=== PATIENT | male | born 1960 | race Caucasian/White ===

== ENCOUNTER → 2016-08-29 | Outpatient (CLI) | payer OTHER | LOC: BMCIMAGING 16:28 | PROVIDERS: ATTEND Internal Medicine | DX: R07.9 Chest pain, unspecified (principal) ==

== ENCOUNTER 2017-09-01 16:59 | Emergency (ER) | payer OTHER ==
--- NOTE | 2017-09-01 17:03 | EDPHY ---
HPI/HX/ROS/PE/MDM Narrative: CHIEF COMPLAINT: Rapid pulse, chest pain HPI: The patient is a 57 y/o male with a history of GERD complaining of sudden onset rapid pulse and chest pain onset 14:00, 3 hours ago, while doing non-exertional woodwork at home. He has had similar chest pain in the past, without a firm diagnosis. Around 4 weeks ago he saw Dr. Guerrier, wool dyer, and had a normal echocardiogram. He had planned to do a stress test but insurance denied the plan. The chest pain today was initially dull and radiating throughout his chest and up into his neck. Currently he is not having pain and is no longer having a pounding pulse. Taking a deep breath does not affect his symptoms. Denies familial history of cardiac problems. Denies history of diabetes, hypertension, and hypercholesteremia. Denies headache, shortness of breath, abdominal pain, urinary or bowel complaints, numbness, paresthesias, or fever. REVIEW OF SYSTEMS: Aside from elements discussed in the HPI, a comprehensive 10-point review of systems was reviewed and is negative. 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 ENT: Eyes are normal to inspection. ENT inspection normal. Neck: Normal inspection. Full range of motion. Respiratory: No respiratory distress. Breath sounds normal bilaterally. Cardiovascular: Regular rate and rhythm. Strong peripheral pulses. Normal cap refill. Abdomen: The abdomen is nontender to palpation. There are no peritoneal signs. There are normal bowel sounds. Back: Normal to inspection. No tenderness to palpation. Skin: Normal color. No rash. Warm and dry. Extremities: Normal appearance. Full range of motion. Neuro: Oriented x3. Normal motor function. Normal sensory function. ED Course: 1706: EKG was ordered and interpreted by myself. Please see [employer] ([employer]) system for official reading. 1808: Reassessed patient and discussed normal laboratory and imaging findings. I have advised him to follow up with his wool dyer in the next week. Strict return precautions provided; patient is comfortable with this plan. MDM: This patient presents with atypical chest pain in the absence of cardiac risk factors. We performed an extensive workup including D-dimer, EKG, troponin, chest x-ray, all of which are negative. I see no evidence for pulmonary embolus , acute coronary syndrome, thoracic aortic dissection, pneumothorax, pneumonia. On re-evaluation, the patient feels comfortable his vital signs are normal. We discussed options including admission to the hospital, repeat troponin, but patient would prefer to go home. The patient's heart score is very low and per guidelines, the recommended plan is discharge from the ED. We will refer him back to his wool dyer. We discussed strict return precautions. - Data Points Imaging Results: Imaging Impressions Chest X-Ray 09/01/17 17:41 Impression: No significant radiographic abnormality. Specifically, a source for chest pain is not identified. Imaging: I viewed and interpreted images myself Laboratory Results: Laboratory Results 09/01/17 17:05 09/01/17 17:05 09/01/17 09/01/17 09/01/17 17:05 17:05 17:05 WBC 5.56 10^3/uL 10^3/uL (3.80-9.50) RBC 4.91 10^6/uL 10^6/uL (4.40-6.38) Hgb 14.7 g/dL g/dL (13.7-17.5) Hct 43.2 % % (40.0-51.0) MCV 88.0 fL fL (81.5-99.8) MCH 29.9 pg pg (27.9-34.1) MCHC 34.0 g/dL g/dL (32.4-36.7) RDW 12.2 % % (11.5-15.2) Plt Count 238 10^3/uL 10^3/uL (150-400) MPV 9.6 fL fL (8.7-11.7) Neut % (Auto) 70.4 % % (39.3-74.2) Lymph % (Auto) 20.5 % % (15.0-45.0) [place] % (Auto) 7.0 % % (4.5-13.0) Eos % (Auto) 0.7 % % (0.6-7.6) Baso % (Auto) 0.7 % % (0.3-1.7) Nucleat RBC Rel Count 0.0 % % (0.0-0.2) Absolute Neuts (auto) 3.91 10^3/uL 10^3/uL (1.70-6.50) Absolute Lymphs (auto) 1.14 10^3/uL 10^3/uL (1.00-3.00) Absolute Monos (auto) 0.39 10^3/uL 10^3/uL (0.30-0.80) Absolute Eos (auto) 0.04 10^3/uL 10^3/uL (0.03-0.40) Absolute Basos (auto) 0.04 10^3/uL 10^3/uL (0.02-0.10) Absolute Nucleated RBC 0.00 10^3/uL 10^3/uL (0-0.01) Immature Gran % 0.7 % % (0.0-1.1) Immature Gran # 0.04 10^3/uL 10^3/uL (0.00-0.10) D-Dimer 0.41 ug/mLFEU ug/mLFEU (0.00-0.50) Sodium 147 mEq/L H mEq/L (135-145) Potassium 3.8 mEq/L mEq/L (3.5-5.2) Chloride 107 mEq/L mEq/L (97-110) Carbon Dioxide 24 mEq/l mEq/l (22-31) Anion Gap 16 mEq/L mEq/L (8-16) BUN 13 mg/dL mg/dL (7-23) Creatinine 0.9 mg/dL mg/dL (0.7-1.3) Estimated GFR > 60 Glucose 105 mg/dL H mg/dL (70-100) Calcium 9.6 mg/dL mg/dL (8.5-10.4) Troponin I < 0.012 ng/mL ng/mL (0.000-0.034) General Time Seen by Provider: 09/01/17 17:01 Initial Vital Signs: Initial Vital Signs Temperature (C) 37.1 C 09/01/17 17:04 Heart Rate 95 09/01/17 17:04 Respiratory Rate 18 09/01/17 17:04 Blood Pressure 164/98 H 09/01/17 17:04 O2 Sat (%) 97 09/01/17 17:04 O2 Delivery Mode Room Air Allergies/Adverse Reactions: aspirin Allergy (Verified 09/01/17 17:04) Home Medications: Medication Instructions Recorded NK [No Known Home Meds] 09/01/17 Departure - Departure Disposition: Home, Routine, Self-Care Clinical Impression: Chest pain Qualifiers: Chest pain type: other chest pain Qualified Code(s): R07.89 - Other chest pain Condition: Good Instructions: Chest Pain (ED) Additional Instructions: Follow-up with your primary doctor within 72 hours. Return to the Emergency Department for fever, chest pain, shortness of breath, increasing pain or other worsening of condition. Follow up with a wool dyer for further testing, as soon as possible, within one week. As we discussed, it is impossible to fully rule out heart disease as the cause of your chest pain in the emergency department. We would be happy to reevaluate you and observe you in the hospital at any time. Referrals: Annette Lyon MD [Primary Care Provider] - As per Instructions Jose D Guerrier MD [Medical Doctor] - As per Instructions Report Scribed for: Galdino Valdez Report Scribed by: Gricelda Cain Date of Report: 09/01/17 Time of Report: 17:02 Physician Review and Approval Statement: Portions of this note were transcribed by an ED scribe. I personally performed the history, physical exam, and medical decision making; and confirm the accuracy of the information in the transcribed note.
--- NOTE | 2017-09-01 17:10 | CPEKG ---
Heart Rate: 92 RR Interval: 652 P-R Interval: 152 QRSD Interval: 84 QT Interval: 352 QTC Interval: 436 P [place]: 23 QRS [place]: 53 T Wave [place]: 2 EKG Severity - OTHERWISE NORMAL ECG - EKG Impression: SINUS RHYTHM EKG Impression: LOW VOLTAGE IN FRONTAL LEADS Electronically Signed By: Helio William 03-Sep-2017 14:51:54
[2017-09-01 17:22] LABS: PLATELET COUNT 238 10^3/uL (150-400)
[2017-09-01 18:10] VITALS: BP 140/91
== END 2017-09-01 18:25 | disposition home or self-care (01) ==
DX: R07.89 Other chest pain (principal)

== ENCOUNTER 2017-10-03 07:48 | Day surgery (SDC) | payer OTHER ==
--- NOTE | 2017-10-03 07:53 | EDPHY ---
H & P Time Seen by Provider: 10/03/17 07:52 HPI/ROS: CHIEF COMPLAINT: Chest pain and rapid pulse HISTORY OF PRESENT ILLNESS: Patient was seen in our ED on September 01 with chest pain and was discharged; head unremarkable EKG, D-dimer, and troponin. he had a follow-up with Cardiology and had a nuclear stress test 2 weeks ago and a cardiac catheterization plan for a week from today. He has been feeling poorly for several weeks and had a colonoscopy and EGD late last week as part of his investigation into his symptoms. He awakened this morning at 5:00 a.m. Feeling"queasy"and at 7:15 a.m. While he was on the sofa watching the morning news, he developed stabbing left-sided chest pain radiating to his left arm associated with chills and a rapid heart rate. His chest pain is resolved and now has chest just feels"numb"but the rapid pulse continues. Not associated with cough or fever or leg swelling. No recent travel or immobilization. No syncope. REVIEW OF SYSTEMS: Eye: no change in vision ENT: no sore throat Cardiac: HPI Pulmonary: no cough or SOB Abdomen: no vomiting, diarrhea, abdominal pain Musculoskeletal: no back pain or neck pain Skin: no rash Neuro: no headache Constitutional: Feeling chilled : no urinary symptoms A comprehensive 10 point review of systems is otherwise negative aside from elements mentioned in the history of present illness. PAST MEDICAL HISTORY: Previous ED visit dated 09/01/2017 personally reviewed includes GERD and nasal surgery. Family history: Denies family history of CAD or VTE Social history: Nonsmoker General Appearance: Alert and conversant, cooperative. Eyes: No scleral icterus. ENT, Mouth: Normal mucous membranes. Respiratory: Normal respiratory effort, breath sounds equal, lungs are clear to auscultation. Cardiovascular: Regular rate and rhythm. Tachycardic without murmur. Gastrointestinal: Abdomen is soft and non tender. Neurological: Alert, face symmetric, normal motor and sensory in extremities. Skin: Warm and dry, no rashes. Musculoskeletal: No peripheral edema. No calf tenderness. Psychiatric: Appears shaky, a bit anxious. Emergency Department course/MDM: Patient states he is allergic to aspirin with throat tightness and hives, therefore none is given. Labs sent and placed on a monitor, cardiology consultation for recurrent symptoms with abnormal EKG and previously documented abnormal stress test. Does not appear to have ST elevation in the ED. Chest symptoms have mostly resolved and he just feels"numb". 841: Discussed with Colt who is here in the emergency department to see the patient. Admission hospitalist, plan for catheterization lab this morning. Smoking Status: Never smoked Constitutional: Initial Vital Signs Temperature (C) 36.6 C 10/03/17 07:50 Heart Rate 122 H 10/03/17 07:50 Respiratory Rate 20 10/03/17 07:50 Blood Pressure 135/93 H 10/03/17 07:50 O2 Sat (%) 98 10/03/17 07:50 O2 Delivery Mode Room Air Allergies/Adverse Reactions: aspirin Allergy (Verified 10/03/17 07:49) Home Medications: Medication Instructions Recorded NK [No Known Home Meds] 09/01/17 Medical Decision Making - Diagnostics EKG Interpretation: 12-lead EKG interpreted by me; official reading is in trace master. My interpretation is sinus tachycardia with low voltage in frontal leads, query diffuse anterolateral ST depression. Imaging Results: 828: Chest x-ray personally interpreted is normal. Differential Diagnosis: Differential diagnosis considered for chest pain including but not limited to myocardial ischemia, aortic dissection, pericarditis, pulmonary embolus, chest wall pain, pleural inflammation and pulmonary infectious causes. Consult/Admit Bed Type: Colt 807 will see in ED, [facility] 840 - Data Points Laboratory Results: Laboratory Results 10/03/17 07:55 10/03/17 07:55 10/03/17 10/03/17 07:55 07:55 WBC 8.55 10^3/uL 10^3/uL (3.80-9.50) RBC 5.13 10^6/uL 10^6/uL (4.40-6.38) Hgb 15.5 g/dL g/dL (13.7-17.5) Hct 45.6 % % (40.0-51.0) MCV 88.9 fL fL (81.5-99.8) MCH 30.2 pg pg (27.9-34.1) MCHC 34.0 g/dL g/dL (32.4-36.7) RDW 12.0 % % (11.5-15.2) Plt Count 246 10^3/uL 10^3/uL (150-400) MPV 9.8 fL fL (8.7-11.7) Neut % (Auto) 76.0 % H % (39.3-74.2) Lymph % (Auto) 16.8 % % (15.0-45.0) [place] % (Auto) 6.2 % % (4.5-13.0) Eos % (Auto) 0.5 % L % (0.6-7.6) Baso % (Auto) 0.4 % % (0.3-1.7) Nucleat RBC Rel Count 0.0 % % (0.0-0.2) Absolute Neuts (auto) 6.50 10^3/uL 10^3/uL (1.70-6.50) Absolute Lymphs (auto) 1.44 10^3/uL 10^3/uL (1.00-3.00) Absolute Monos (auto) 0.53 10^3/uL 10^3/uL (0.30-0.80) Absolute Eos (auto) 0.04 10^3/uL 10^3/uL (0.03-0.40) Absolute Basos (auto) 0.03 10^3/uL 10^3/uL (0.02-0.10) Absolute Nucleated RBC 0.00 10^3/uL 10^3/uL (0-0.01) Immature Gran % 0.1 % % (0.0-1.1) Immature Gran # 0.01 10^3/uL 10^3/uL (0.00-0.10) Sodium 147 mEq/L H mEq/L (135-145) Potassium 4.1 mEq/L mEq/L (3.3-5.0) Chloride 109 mEq/L mEq/L (97-110) Carbon Dioxide 22 mEq/l mEq/l (22-31) Anion Gap 16 mEq/L mEq/L (8-16) BUN 16 mg/dL mg/dL (7-23) Creatinine 0.9 mg/dL mg/dL (0.7-1.3) Estimated GFR > 60 Glucose 109 mg/dL H mg/dL (70-100) Calcium 10.1 mg/dL mg/dL (8.5-10.4) Troponin I < 0.012 ng/mL ng/mL (0.000-0.034) Medications Given: Discontinued Medications Nitroglycerin (Nitrostat) 0.4 mg SL EDNOW ONE Stop: 10/03/17 08:36 Last Admin: 10/03/17 08:36 Dose: 0.4 mg Departure - Departure Disposition: To OP Cath/Surgery Clinical Impression: Chest pain Condition: Good Referrals: Annette Lyon MD [Primary Care Provider] - As per Instructions
--- NOTE | 2017-10-03 07:58 | CPEKG ---
Heart Rate: 103 RR Interval: 583 P-R Interval: 160 QRSD Interval: 94 QT Interval: 356 QTC Interval: 466 P [place]: 48 QRS [place]: 86 T Wave [place]: 18 EKG Severity - OTHERWISE NORMAL ECG - EKG Impression: SINUS TACHYCARDIA EKG Impression: LOW VOLTAGE IN FRONTAL LEADS Electronically Signed By: David Emanuel 03-Oct-2017 08:07:48
[2017-10-03 08:17] LABS: PLATELET COUNT 246 10^3/uL (150-400)
[2017-10-03] MEDS ORDERED: NITROGLYCERIN 0.4 MG BTL SL ONE ×2 (08:35)
[2017-10-03] MEDS ORDERED: MIDAZOLAM 2 MG/2 ML VIAL ONE ×2 (08:59→09:49)
[2017-10-03] MEDS ORDERED: LIDOCAINE 1% 300 MG/30 ML SDV ONE (08:59)
[2017-10-03] MEDS ORDERED: fentaNYL 100 MCG/2 ML INJ ONE ×2 (08:59→09:49)
[2017-10-03] MEDS ORDERED: IOPAMIDOL (ISOVUE-370) 150 ML BTL IV ONE (09:00)
[2017-10-03] MEDS ORDERED: BIVALIRUDIN 250 MG/5 ML VIAL IV ONE (09:06)
--- NOTE | 2017-10-03 09:07 | PDPROPOC ---
Sedation Plan of Care Sedation Plan of Care: vital signs stable, mental status noted, patient educated of risks, benefits, alternatives, patient can tolerate sedation ASA Classification: ASA 3 Planned drugs: fentanyl, midazolam Mallampati Score: Class 1 Mallampati Reference Image: Patient passed 3-3-2 rule?: Yes
[2017-10-03 09:10] VITALS: BP 109/72
--- NOTE | 2017-10-03 09:17 | PDCARCONS ---
Cardiology Consult Reason for Consult: Chest pains Chief Complaint: Chest pains Requesting Physician: ER Team History of Present Illness: Patient is a 57 y/o male with fairly unremarkable past medical history (no HTN, HLP, CAD, or DM), who presents to the ER this morning with progressive complaints of chest discomfort. Discomfort is a pain, at present 4-5/10 with earlier radiation into the left shoulder and down the left arm. Similar symptoms have been noted for several weeks (upwards of 8 per patient). was present with the patient this morning. Echocardiogram from July of this year wtih normal LVEF noted. Moderate tricuspid regurgitation was appreciated ( RVSP was 37 mm Hg), but no other valve pathology was noted. Stress testing was performed (ETT) on September 05, and DTS was +5, but there were ECG changes noted to inferior leads. Nuclear stress testing was recommended given the ECG changes , and this was performed September 25 with a small sized, mild intensity reversible mid to distal inferoapical defect noted. Patient was then seen in clinic with recommendations to pursue left heart cath next week. Symptoms were noted once again this morning, and the patient also felt more malaise, elevation in heart rates, and chest pains, so opted for assessment in the ER this morning. First cardiac biomarker was normal, but ECG with some subtle ECG changes (ST depression) to the inferior/inferolateral leads. Remainder of the 12 point review of systems was unremarkable. History Information - Allergies/Home Medication List Allergies/Adverse Reactions: aspirin Allergy (Verified 10/03/17 08:51) Swelling/neck,face,throat Home Medications: NK [No Known Home Meds] 09/01/17 [Last Taken Unknown] I have personally reviewed and updated: family history, medical history, social history, surgical history Past Medical History: - Past Medical History no pertinent PMH - Surgical History Reports: no pertinent surgical hx - Family History Positive for: hypertension - Social History Smoking Status: Never smoked Alcohol Use: None Drug Use: None Cardiac History - Cardiac History Cardiac Risk Factors: male Timing/Duration: Weeks Severity: moderate Severity Scale: 5 Location: substernal Activities at Onset: emotional stress Modifying Factors: improves with: breathing, oxygen, rest Associated Symptoms: chest pain, malaise [place] Risk Evaluation age greater or equal to 65: no greater or equal to 3 CAD risk factors: no known CAD(stenosis greater or eqaul to 50%): no ASA use in past 7 days: no severe angina(greater or equal to 2 episodes in 24hrs): no EKG ST changes greater or equal to 0.5mm: yes positive cardiac marker: no Total Score: 2 [place] Score: 8.3% risk Physical Exam Physical Exam: Temp Pulse Resp BP Pulse Ox 36.6 C 87 18 120/89 H 98 10/03/17 07:50 10/03/17 08:31 10/03/17 08:31 10/03/17 08:31 10/03/17 08:31 Constitutional: appears nourished, uncomfortable Eyes: PERRL, EOMI Ears, Nose, Mouth, Throat: moist mucous membranes, hearing normal Cardiovascular: regular rate and rhythym, pulses symmetric bilaterally, No JVD, No edema Peripheral Pulses: 2+: dorsalis-pedis (R), dorsalis-pedis (L) Respiratory: no respiratory distress Gastrointestinal: normoactive bowel sounds Skin: warm Musculoskeletal: full muscle strength Neurologic: AAOx3, sensation intact bilaterally, CN II-XII Intact Psychiatric: interacting appropriately, not anxious Lab and Imaging 10/03/17 07:55 10/03/17 07:55 WBC 8.55 10^3/uL (3.80-9.50) 10/03/17 07:55 RBC 5.13 10^6/uL (4.40-6.38) 10/03/17 07:55 Hgb 15.5 g/dL (13.7-17.5) 10/03/17 07:55 Hct 45.6 % (40.0-51.0) 10/03/17 07:55 MCV 88.9 fL (81.5-99.8) 10/03/17 07:55 MCH 30.2 pg (27.9-34.1) 10/03/17 07:55 MCHC 34.0 g/dL (32.4-36.7) 10/03/17 07:55 RDW 12.0 % (11.5-15.2) 10/03/17 07:55 Plt Count 246 10^3/uL (150-400) 10/03/17 07:55 MPV 9.8 fL (8.7-11.7) 10/03/17 07:55 Neut % (Auto) 76.0 % (39.3-74.2) H 10/03/17 07:55 Lymph % (Auto) 16.8 % (15.0-45.0) 10/03/17 07:55 [place] % (Auto) 6.2 % (4.5-13.0) 10/03/17 07:55 Eos % (Auto) 0.5 % (0.6-7.6) L 10/03/17 07:55 Baso % (Auto) 0.4 % (0.3-1.7) 10/03/17 07:55 Nucleat RBC Rel Count 0.0 % (0.0-0.2) 10/03/17 07:55 Absolute Neuts (auto) 6.50 10^3/uL (1.70-6.50) 10/03/17 07:55 Absolute Lymphs (auto) 1.44 10^3/uL (1.00-3.00) 10/03/17 07:55 Absolute Monos (auto) 0.53 10^3/uL (0.30-0.80) 10/03/17 07:55 Absolute Eos (auto) 0.04 10^3/uL (0.03-0.40) 10/03/17 07:55 Absolute Basos (auto) 0.03 10^3/uL (0.02-0.10) 10/03/17 07:55 Absolute Nucleated RBC 0.00 10^3/uL (0-0.01) 10/03/17 07:55 Immature Gran % 0.1 % (0.0-1.1) 10/03/17 07:55 Immature Gran # 0.01 10^3/uL (0.00-0.10) 10/03/17 07:55 Sodium 147 mEq/L (135-145) H 10/03/17 07:55 Potassium 4.1 mEq/L (3.3-5.0) 10/03/17 07:55 Chloride 109 mEq/L (97-110) 10/03/17 07:55 Carbon Dioxide 22 mEq/l (22-31) 10/03/17 07:55 Anion Gap 16 mEq/L (8-16) 10/03/17 07:55 BUN 16 mg/dL (7-23) 10/03/17 07:55 Creatinine 0.9 mg/dL (0.7-1.3) 10/03/17 07:55 Estimated GFR > 60 10/03/17 07:55 Glucose 109 mg/dL (70-100) H 10/03/17 07:55 Calcium 10.1 mg/dL (8.5-10.4) 10/03/17 07:55 Troponin I < 0.012 ng/mL (0.000-0.034) 10/03/17 07:55 Visualized and Interpreted Chest x-ray results: Yes Chest X-ray Interpretation: no infiltrate, normal, normal heart size Visualized and Interpreted EKG results: Yes EKG Interpretation: Positive for: normal sinsus rhythm, NS ST wave abnormalities A/P Assessment: Patient is a 57 y/o male with unremarkable past medical history (per review of outpatient cardiology notes) with ETT and MPI testing with ischaemic patterns noted. Normal systolic function by echo. Ongoing chest pains today with ECG changes (subtle) and a normal cardiac biomarker. Given the stress testing results, the patient was set up for angiography in one week. Plan: Recommendations for patient to have angiogram. Risks and benefits of the procedure were discussed with both patient and . 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
[2017-10-03] MEDS ORDERED: CLOPIDOGREL BISULFATE 75 MG TAB ONE (09:57)
--- NOTE | 2017-10-03 10:00 | PDDXCAT ---
Diagnostic Cath Note - . Date: 10/03/17 Special Ed Assistant: Colt High-risk criteria on non-invasive testing: stress-induced moderate-size multiple perfusion defects - Procedure Access: right groin Procedure: left heart catheterization, coronary angiography, left ventriculogram - Materials Left Heart Cath size: 6F Left Heart Cath materials: standard multipack (JL4, JR4, pigtail) - Findings-Left Heart Catheterization LM: Large vessel with trifurcation into the LAD, LCX, and ramus vessels. No luminal irregularities were noted. LAD: Medium diameter vessel with a haziness to the mid vessel. D1 and D3 are very small. D2 was a small diamter vessel. Just proximal to the D3, there is a haziness present (? thrombus/clot). Distal LAD is wrap around. LCX: Medium diameter vessel with early take off OM1, roughly equal in magnitude to LCX from which it takes off. No clear luminal irregularities were noted. PDA is supplied by the distal LCX. RCA: Very small, diminuative vessel. Could not directly inject this vessel. Visualization of the RCA by LV gram Ramus: Large diamter vessel with large territory between LCX and LAD. No clear luminal irregularities were noted. EDP: 14 mm Hg LVEF: 65% Wall motion: normal wall motion Complications: none Estimated blood loss: <50ml Assessment: Given the lesion to the mid LAD and the territory in jeopardy from MPI testing, will have Dr. uHa Mejia assess the lesion and determine next course of action. Plan: Dr. Hua Mejia to perform PCI to the mid LAD lesion Intervention: mid LAD lesion Patient Problems: Problems Problem Status Onset Chest pain Acute
[2017-10-03] MEDS ORDERED: ADENOSINE 90 MG/30 ML VIAL IV ONE (10:13)
[2017-10-03] MEDS ORDERED: NITROGLYCERIN 0.4 MG BTL SL PRN (11:14)
[2017-10-03] MEDS ORDERED: ATROPINE SULFATE 1 MG/10 ML SYR IVP PRN (11:14)
[2017-10-03] MEDS ORDERED: ATORVASTATIN CALCIUM 20 MG TAB PO SCH (11:15)
--- NOTE | 2017-10-03 11:18 | PDCTREPORT ---
Cardiothoracic Procedure Rpt Cardiothoracic Procedure Report: Procedure: Left heart catheterization with fractional flow reserve assessment of the LAD. Diagnostic coronary angiogram of the right coronary. Indications: Indeterminate mid LAD stenosis associated with abnormal nuclear stress test discordant with findings. Allergy to aspirin. After reviewing diagnostic angiograms by my partner Dr. Gregory was elected to proceed with assessment of the mid LAD lesion. Clearly indeterminate by angiography. With patient's significant allergy to aspirin FFR assessment seems appropriate. Patient was anticoagulated with Angiomax. Using a 6 Czech JL4 guiding catheter the left main coronary was selectively intubated guiding shots were performed. A 0.014 FFR wire was then equilibrated in the aorta. The left main was engaged in the wire advanced into the distal LAD. Patient was administered 1 40 mics per kilos per minute of adenosine over 2 min. Fractional flow reserve was measured at 0.93. The wire was withdrawn final orthogonal angiograms were obtained. Using an AL1 catheter the right coronary was selectively intubated and diagnostic angiogram was performed revealing no obstructive disease. Conclusions: 40% mid LAD stenosis with FFR of 0.93. Normal right coronary artery. Recommendations: Plavix and 5 mg a day as an antiplatelet agent. Statin therapy to achieve LDL cholesterol less than 70 mg/dL. Clinical follow-up. Results discussed with the patient's and brother all questions were answered. Patient Problems: Problems Problem Status Onset Chest pain Acute
--- NOTE | 2017-10-03 12:48 | PDGENHP ---
History and Physical - History of Present Illness Patient is a 57 y/o male with fairly unremarkable past medical history (no HTN, HLP, CAD, or DM), who presents to the ER this morning with progressive complaints of chest discomfort. Sx have been present for several weeks. Recent Stress testing on August 16 showed ECG changes in inferior leads. Nuclear stress testing on September 25 showed inferoapical defect. Given that he has CP, Cardiology has proceeded to perform cardia cath. Denies sob, n/v/d, fever, no leg edema. Feels good otherwise PMHx: none PSHx: none SocHx: no t/e/i FmHx: hx of HTN History Information - Allergies/Home Medication List Allergies/Adverse Reactions: aspirin Allergy (Verified 10/03/17 08:51) Swelling/neck,face,throat I have personally reviewed and updated: medical history, social history - Past Medical History no pertinent PMH - Surgical History Reports: no pertinent surgical hx - Family History Positive for: hypertension - Social History Smoking Status: Never smoked Alcohol Use: None Drug Use: None Review of Systems Review of Systems: ROS: 10pt was reviewed & negative except for what was stated in HPI & below Physical Exam Physical Exam: Temp Pulse Resp BP Pulse Ox 36.6 C 87 18 109/72 98 10/03/17 07:50 10/03/17 09:09 10/03/17 09:09 10/03/17 09:09 10/03/17 09:09 Constitutional: no apparent distress, appears nourished Eyes: PERRL, anicteric sclera, EOMI Ears, Nose, Mouth, Throat: moist mucous membranes, hearing normal, ears appear normal Respiratory: no respiratory distress, no rales or rhonchi, clear to auscultation Gastrointestinal: normoactive bowel sounds, soft, non-tender abdomen Genitourinary: no bladder fullness Skin: warm Musculoskeletal: full muscle strength Neurologic: AAOx3 Psychiatric: interacting appropriately, not anxious, not encephalopathic Lymph, Heme, Immunologic: No petechiae Lab Data & Imaging Review 10/03/17 07:55 10/03/17 07:55 WBC 8.55 10^3/uL (3.80-9.50) 10/03/17 07:55 RBC 5.13 10^6/uL (4.40-6.38) 10/03/17 07:55 Hgb 15.5 g/dL (13.7-17.5) 10/03/17 07:55 Hct 45.6 % (40.0-51.0) 10/03/17 07:55 MCV 88.9 fL (81.5-99.8) 10/03/17 07:55 MCH 30.2 pg (27.9-34.1) 10/03/17 07:55 MCHC 34.0 g/dL (32.4-36.7) 10/03/17 07:55 RDW 12.0 % (11.5-15.2) 10/03/17 07:55 Plt Count 246 10^3/uL (150-400) 10/03/17 07:55 MPV 9.8 fL (8.7-11.7) 10/03/17 07:55 Neut % (Auto) 76.0 % (39.3-74.2) H 10/03/17 07:55 Lymph % (Auto) 16.8 % (15.0-45.0) 10/03/17 07:55 [place] % (Auto) 6.2 % (4.5-13.0) 10/03/17 07:55 Eos % (Auto) 0.5 % (0.6-7.6) L 10/03/17 07:55 Baso % (Auto) 0.4 % (0.3-1.7) 10/03/17 07:55 Nucleat RBC Rel Count 0.0 % (0.0-0.2) 10/03/17 07:55 Absolute Neuts (auto) 6.50 10^3/uL (1.70-6.50) 10/03/17 07:55 Absolute Lymphs (auto) 1.44 10^3/uL (1.00-3.00) 10/03/17 07:55 Absolute Monos (auto) 0.53 10^3/uL (0.30-0.80) 10/03/17 07:55 Absolute Eos (auto) 0.04 10^3/uL (0.03-0.40) 10/03/17 07:55 Absolute Basos (auto) 0.03 10^3/uL (0.02-0.10) 10/03/17 07:55 Absolute Nucleated RBC 0.00 10^3/uL (0-0.01) 10/03/17 07:55 Immature Gran % 0.1 % (0.0-1.1) 10/03/17 07:55 Immature Gran # 0.01 10^3/uL (0.00-0.10) 10/03/17 07:55 Sodium 147 mEq/L (135-145) H 10/03/17 07:55 Potassium 4.1 mEq/L (3.3-5.0) 10/03/17 07:55 Chloride 109 mEq/L (97-110) 10/03/17 07:55 Carbon Dioxide 22 mEq/l (22-31) 10/03/17 07:55 Anion Gap 16 mEq/L (8-16) 10/03/17 07:55 BUN 16 mg/dL (7-23) 10/03/17 07:55 Creatinine 0.9 mg/dL (0.7-1.3) 10/03/17 07:55 Estimated GFR > 60 10/03/17 07:55 Glucose 109 mg/dL (70-100) H 10/03/17 07:55 Calcium 10.1 mg/dL (8.5-10.4) 10/03/17 07:55 Troponin I < 0.012 ng/mL (0.000-0.034) 10/03/17 07:55 Assessment & Plan Assessment: #Chest pain (Acute) #Abnormal stress test Plan: Proceed with Cardic Cath per Cardiology optimized medical mgt
--- NOTE | 2017-10-03 12:52 | PDDCSUM ---
Discharge Summary Discharge Summary: 57 yo male who had urgent cardiac cath due to chest pain and abnormal stress test. There were initial concerns for a mid LAD lesion. Dr. Mejia has evaluated and has found no significant stenosis. Medical optimization is preferred. He is being started on Lipitor and Plavix. He has an Aspirin allergy. He will f/u with his PCP. A lipid panel has been ordered and is pending. DDX: #chest pain #abnormal Stress study #Aspirin allergy Exam: NAD AAOX3 RRR CTA B MEDS: SEE MED REC. F/U: WITH PCP IN ONE WEEK TOTAL TIME SPENT ON D/C IS 45 MINS
[2017-10-04] MEDS ORDERED: CLOPIDOGREL BISULFATE 75 MG TAB PO SCH (09:00)
== END 2017-10-03 14:59 | disposition home or self-care (01) ==
LOC: UNDOADMOB 08:40 → FCATH 08:40
PROVIDERS: ATTEND Family Medicine
DX: I25.10 Atherosclerotic heart disease of native coronary artery without angina pectoris (principal); Z88.6 Allergy status to analgesic agent; K21.9 Gastro-esophageal reflux disease without esophagitis
CPT/HCPCS: C1760; C1769; C1887; J0153; J0583; J1200; J1644; J2250; J3010; Q9967

== ENCOUNTER 2017-10-05 09:10 | Observation (INO) | payer OTHER ==
--- NOTE | 2017-10-05 09:12 | EDPHY ---
HPI/HX/ROS/PE/MDM Narrative: CHIEF COMPLAINT: Right femoral swelling HPI: The patient is an anticoagulated (Plavix) 57 y/o male complaining of right femoral swelling s/p exploratory right femoral catheterization on 10/03/17, 2 days ago. He had this catheterization preformed by Dr. Gregory, film crew member, and an FFR preformed by Dr. Mejia, film crew member, after presenting to the emergency department for chest pain. The catheterization showed a 40% occluded distal LAD, so the patient was started on Plavix and Lipitor. Today he woke up, moved his right leg, and immediately noticed swelling at the site of his catheterization at 09:00, 15 minutes ago. His immediately applied pressure to the swelling and called 911. He is currently anxious and complaining of a dull chest pain which has been present for 1 month. Denies shortness of breath, abdominal pain, numbness, paresthesias or fever. Prior medical records reviewed including discharge summary on 10/03/17. REVIEW OF SYSTEMS: Aside from elements discussed in the HPI, a comprehensive 10-point review of systems was reviewed and is negative. 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 ENT: Eyes are normal to inspection. ENT inspection normal. Neck: Normal inspection. Full range of motion. Respiratory: No respiratory distress. Breath sounds normal bilaterally. Cardiovascular: Tachycardic. Strong peripheral pulses. Normal cap refill. Abdomen: The abdomen is nontender to palpation. There are no peritoneal signs. There are normal bowel sounds. Back: Normal to inspection. No tenderness to palpation. Skin: Normal color. No rash. Warm and dry. Extremities: Normal appearance. Full range of motion. Neuro: Oriented x3. Normal motor function. Normal sensory function. ED Course: 0911: I met EMS upon arrival 0957: Patient is requesting pain medications; 4mg IV Morphine given. 1014: Reassessed patient, he is still in moderate pain. Additional 4mg IV Morphine will be given in 10 minutes. 1119: Spoke with Dr. Grayson, radiologist, regarding patient's US findings. The patient has a right femoral pseudoaneurysm. Pelvic CTA ordered. 1140: Consulted with Dr. Gregory, film crew member, regarding this patient. 1235: Spoke with Dr. Handy, radiologist, patient's pelvic CT does not reveal a pseudoaneurysm 1300: Consulted with Dr. Gregory regarding patient's CT findings. Patient will need to be admitted, Dr. Gregory will consult on this patient during his admission. 1304: Reassessed patient and discussed CT and laboratory findings. I have also discussed plan for admission for his groin hematoma, which he is comfortable with. 1329: Consulted with hospitalist service, Dr. Westbrook accepts admission of this patient for his groin hematoma. - Data Points Imaging Results: Imaging Impressions Pseudoaneurysm Repair US 10/05/17 09:14 Impression: Post catheterization right groin hematoma with atypical posterior linear pseudoaneurysm favored over possible arteriovenous fistula. After consulting personally with the patient, I recommend definitive characterization by pelvic CT angiography. Findings were communicated with Dr. Galdino Valdez MD at 10/05/2017 Pelvis CTA 10/05/17 11:26 Impression: 1. Soft tissue contusion around the right common femoral to superficial femoral artery related to recent catheterization procedure without evidence of pseudoaneurysm or AV fistula. 2. The findings on prior ultrasound study correspond to intramuscular branch off the common femoral artery and not related to extravasation. Findings discussed with Galdino Valdez MD at 12:33 hour, 10/05/2017. Imaging: Discussed imaging studies w/ orthopedically impaired teacher Radiologist, I viewed and interpreted images myself Laboratory Results: Laboratory Results 10/05/17 09:10 10/05/17 09:10 10/05/17 10/05/17 10/05/17 09:10 09:10 09:10 WBC 6.75 10^3/uL 10^3/uL (3.80-9.50) RBC 5.30 10^6/uL 10^6/uL (4.40-6.38) Hgb 16.1 g/dL g/dL (13.7-17.5) Hct 47.3 % % (40.0-51.0) MCV 89.2 fL fL (81.5-99.8) MCH 30.4 pg pg (27.9-34.1) MCHC 34.0 g/dL g/dL (32.4-36.7) RDW 12.1 % % (11.5-15.2) Plt Count 267 10^3/uL 10^3/uL (150-400) MPV 10.2 fL fL (8.7-11.7) Neut % (Auto) 72.0 % % (39.3-74.2) Lymph % (Auto) 19.4 % % (15.0-45.0) [place] % (Auto) 7.3 % % (4.5-13.0) Eos % (Auto) 0.6 % % (0.6-7.6) Baso % (Auto) 0.6 % % (0.3-1.7) Nucleat RBC Rel Count 0.0 % % (0.0-0.2) Absolute Neuts (auto) 4.86 10^3/uL 10^3/uL (1.70-6.50) Absolute Lymphs (auto) 1.31 10^3/uL 10^3/uL (1.00-3.00) Absolute Monos (auto) 0.49 10^3/uL 10^3/uL (0.30-0.80) Absolute Eos (auto) 0.04 10^3/uL 10^3/uL (0.03-0.40) Absolute Basos (auto) 0.04 10^3/uL 10^3/uL (0.02-0.10) Absolute Nucleated RBC 0.00 10^3/uL 10^3/uL (0-0.01) Immature Gran % 0.1 % % (0.0-1.1) Immature Gran # 0.01 10^3/uL 10^3/uL (0.00-0.10) PT 13.9 SEC SEC (12.0-15.0) INR 1.05 (0.83-1.16) Sodium 145 mEq/L mEq/L (135-145) Potassium 4.1 mEq/L mEq/L (3.3-5.0) Chloride 106 mEq/L mEq/L (97-110) Carbon Dioxide 21 mEq/l L mEq/l (22-31) Anion Gap 18 mEq/L H mEq/L (8-16) BUN 14 mg/dL mg/dL (7-23) Creatinine 1.0 mg/dL mg/dL (0.7-1.3) Estimated GFR > 60 Glucose 125 mg/dL H mg/dL (70-100) Calcium 10.1 mg/dL mg/dL (8.5-10.4) Medications Given: Discontinued Medications Morphine Sulfate (Morphine) 4 mg IVP EDNOW ONE Stop: 10/05/17 09:57 Last Admin: 10/05/17 10:03 Dose: 4 mg Morphine Sulfate (Morphine) 4 mg IVP EDNOW ONE Stop: 10/05/17 10:24 Last Admin: 10/05/17 10:28 Dose: 4 mg General Initial Vital Signs: Initial Vital Signs Temperature (C) 36.4 C 10/05/17 09:21 Heart Rate 102 H 10/05/17 09:21 Respiratory Rate 20 10/05/17 09:21 Blood Pressure 149/99 H 10/05/17 09:21 O2 Sat (%) 99 10/05/17 09:21 O2 Delivery Mode Room Air Allergies/Adverse Reactions: aspirin Allergy (Verified 10/03/17 08:51) Swelling/neck,face,throat Home Medications: Medication Instructions Recorded Atorvastatin Calcium [Lipitor 20 20 mg PO DAILY #30 tab 10/03/17 mg (*)] Clopidogrel Bisulfate [Plavix (*)] 75 mg PO DAILY #30 tab 10/03/17 Departure - Departure Disposition: [facility] Inpatient Acute Clinical Impression: Groin hematoma Qualifiers: Encounter type: initial encounter Qualified Code(s): S30.1XXA - Contusion of abdominal wall, initial encounter Condition: Fair Referrals: Patient,NotPresent [Unknown] - As per Instructions Report Scribed for: Galdino Valdez Report Scribed by: Gricelda Cain Date of Report: 10/05/17 Time of Report: 09:12 Physician Review and Approval Statement: Portions of this note were transcribed by an ED scribe. I personally performed the history, physical exam, and medical decision making; and confirm the accuracy of the information in the transcribed note.
[2017-10-05] MEDS ORDERED: IOPAMIDOL (ISOVUE 370) 100 ML BTL IV ONE (11:34)
[2017-10-05 12:26] LABS: PLATELET COUNT 267 10^3/uL (150-400)
[2017-10-05 12:27] LABS: INR 1.05 (0.83-1.16); PROTIME(PATIENT) 13.9 SEC (12.0-15.0)
[2017-10-05] MEDS ORDERED: oxyCODONE IR 5 MG TAB PO PRN (14:59)
[2017-10-05] MEDS ORDERED: ONDANSETRON DISINTEGRATING 4 MG TAB PO PRN (14:59)
[2017-10-05] MEDS ORDERED: ONDANSETRON 4 MG/2 ML VIAL IVP PRN (14:59)
[2017-10-05] MEDS ORDERED: ACETAMINOPHEN 325 MG TAB PO PRN (14:59)
--- NOTE | 2017-10-05 15:34 | GHP ---
[f rep st] HISTORY AND PHYSICAL DATE OF ADMISSION: 10/05/2017 CHIEF COMPLAINT: Groin pain. HISTORY OF PRESENT ILLNESS: This is a 57-year-old man with a somewhat complicated recent past medica l history. He has had a few visits to the ED here in the last month for chest discomfort. This led to an outpatient stress test which was abnormal, which led to a cardiac catheterization [address] Gregory initially began this, he was concerned for clot in the LAD. Dr. Mejia was called in, p erformed FFR which revealed that there was no significant clot in the LAD. He did have a 40% stenosi s upon which no intervention was taken. He also complains of some presyncopal episodes associated wi th palpitations and tachycardia. He had a recent upper and lower endoscopy for similar symptoms. He has not heard the official results yet. 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 He also tells me he was treated for a parasite in his 20s. He has quit drinking since because of these symptoms. He has also stopped drinking coffee. PAST MEDICAL/SURGICAL HISTORY: Nonobstructive coronary artery disease. MEDICATIONS: Please see medication reconciliation. ALLERGIES: Aspirin. FAMILY HISTORY: Positive for hypertension. SOCIAL HISTORY: Quit drinking, has never used drugs or smoked. REVIEW OF SYSTEMS: 10-point review of systems is conducted and is negative except per HPI. PHYSICAL EXAM: VITAL SIGNS: Blood pressure 126/86, heart rate 102, respiration rate 18, saturating 93% on room air. Temperature 36.4. GENERAL: The patient is a pleasant man who appears somewhat ner vous, otherwise in no acute distress. HEENT: Normocephalic, atraumatic. CARDIOVASCULAR: Regular r ate and rhythm. No murmurs, rubs, or gallops. PULMONARY: Lungs clear to auscultation bilaterally. ABDOMEN: Soft, nontender, nondistended. : Shows him to have a right groin area which is mildly fluctuant. There is no significant ecchymosis. It is very tender to palpation. SKIN: No rash. : No Higgins. NEUROLOGIC: Shows him to be alert and oriented x3. He is moving all extremities. PSY CHIATRIC: Normal mood and affect. EXTREMITIES: Right lower extremity exam shows him to have normal DP as well as PT pulse. He has sensation and motor intact in his foot. His foot is cold, however, but is symmetric to the left foot. LABORATORY DATA: CBC is normal. INR is 1.0. Anion gap is 18, bicarb 21, glucose 125. Otherwise, h is chemistries are normal. DATA: 1. I discussed with both Dr. Gregory as well as Dr. Valdez, we will admit to med/surg. 2. CT angio of the pelvis shows soft tissue contusion around the right common femoral to superficial femoral artery related to recent catheterization procedure. 3. Pseudoaneurysm: Ultrasound showed possibility of a pseudoaneurysm which was ruled out by CT shelly o. IMPRESSION AND PLAN: 1. Right groin hematoma post catheterization: At this point, there is no directed treatment other t terrazas pain control. He has no vascular or neurologic compromise at this point. We will hold Plavix an d monitor. 2. Palpitations and tachycardia: We will discuss with Cardiology regarding outpatient rhythm monito ring. We will place him on telemetry while he is here. I have also ordered an echocardiogram. 3. Nonobstructive coronary artery disease: He had no interventions taken, we will hold Plavix in e setting of a hematoma for now. /[id number]/MODL
--- NOTE | 2017-10-05 17:55 | ECHO ---
[email or web address] [address] [address] Main: [phone] Fax: Transthoracic Echocardiogram Name: MEDHAT SALDANA MR#: [id number] Study Date: 10/05/2017 Study Time: 04:30 PM Date of : 1960 Age: 57 year(s) Height: 185.4 cm (73 in.) Weight: 79.38 kg (175 lb.) BSA: 2.03 m2 Gender: Male Examination: Echo Indication: tachycardia Image Quality: Adequate Contrast: Requested by: Immanuel Westbrook BP: 121 mmHg/81 mmHg Heart Rate: Rhythm: Indication: tachycardia Procedure Staff Bander Hand: Yessi Locke [facility] Reading Physician: Tomas Mejia MD Requesting Provider: Conclusions: No pericardial effusion. Normal left ventricular systolic function with ejection fraction of 60%. No significant valvular abnormalities by Doppler 2 dimensional study. Right ventricular systolic pressure estimated at 30 mm of mercury. No etiology for tachycardia suggested by this study. Measurements: Chambers Valvular Assessment AV/MV Valvular Assessment TV/PV Normal Normal Normal Name Value Range Name Value Range Name Value Range Ao Katalina (2D): 3.6 cm (1.4 cm-2.6 AV meanP mmHg ( - ) TR Vmax: 2.50 mm/s ( - ) cm) LVOT Vmax: 1.00 m/s (0.7 m/s-1.1 TR PGmax: 25 mmHg ( - ) IVSd (2D): 0.9 cm (0.6 cm-1.1 m/s) syst. PAP: 30 mmHg ( - ) cm) MICHELLE (VTI): 2.6 cm ( - ) PV Vmax: 1.07 m/s (0.6 m/s-0.9 LVDd (2D): 4.0 cm (4.2 cm-5.9 MV E Vmax: 0.53 m/s ( - ) m/s) cm) MV A Vmax: 0.65 m/s ( - ) PV PGmax: 5 mmHg ( - ) LVDs (2D): 2.4 cm (2.1 cm-4 MV E/A: 0.82 ( - ) cm) MV PHT: 0.048 s ( - ) LVPWd (2D): 0.9 cm (0.6 cm-1 cm) MVA (PHT): 4.6 s ( - ) LVOTd 2.2 cm 2.2 cm mm LVEF (2D): 70 (>=54 %) Visual EF: 60 % RVDd(2D): 3.7 cm (1.9 cm-3.8 cmmm) Continued Measurements: Chambers Valvular Assessment AV/MV Valvular Assessment TV/PV Name Value Name Value Name Value LADs: 2.5 cm MV DecTime: 155 m/s CVP (est.): 5 mmHg RA Area: 14.9 cm2 MV E' Septal: 0.06 m/s Patient: MEDHAT SALDANA Study Date: 10/05/2017 Page 1 of 2 04:30 PM MV E/E' Septal: 9.50 MV E/E' Lateral: 6.20 Additional Vessels Name Value Inferior Vena Cava: 1.0 cm Findings: Left Ventricle: Normal size left ventricle. No LV hypertrophy. Normal global systolic LV function. The ejection fraction is visually estimated to be 60 %. No regional wall motion abnormality. Unable to assess diastolic dysfunction. Right Ventricle: Upper normal size right ventricle. Normal RV function. Left Atrium: The left atrium is normal in size. Right Atrium: The right atrium is normal in size. Mitral Valve: The mitral valve is normal in appearance and function. Trivial mitral valve regurgitation. No mitral stenosis is present. Aortic Valve: The aortic valve is normal in appearance and function. There is no significant aortic valve regurgitation. No aortic valve stenosis is present. Tricuspid Valve: The tricuspid valve is normal in appearance and function. Trivial tricuspid valve regurgitation. The pulmonary artery pressure is normal. Right ventricular systolic pressure measures 30mmHg. Pulmonic Valve: The pulmonic valve is normal in appearance and function. There is no pulmonic regurgitation seen. Aorta: The aorta is normal. Normal size aortic root measuring 3.6 cm. IVC: The IVC is normal sized. Pericardium: No pericardial effusion. No pleural effusion. Exam Comments: Patient supine due to pain in groin, apical imaging off axis. (No Signature Object) Patient: MEDHAT SALDANA Study Date: 10/05/2017 Page 2 of 2 04:30 PM [id number]
--- NOTE | 2017-10-06 08:29 | HOSPPROG ---
Hospitalist Progress Note Assessment/Plan: #Post-cardiac cath groin hematoma: no pseudoaneurysm or fistula on imaging -spoke with Dr. Edmond, rec restarting Plavix in 3 days. Allergic to ASA #Palpitations: normal TSH 07/01. Rec outpatient holter #CAD: cath 10/03. 40% LAD stenosis, no intervention #Pain: ice, APAP, tramadol #DVT ppx: SCDs #Disp: Subjective: pain in right groin Objective: Vital Signs Temp Pulse Resp BP Pulse Ox 36.6 C 88 12 110/73 93 10/06/17 08:00 10/06/17 08:00 10/06/17 08:00 10/06/17 08:00 10/06/17 08:00 10/05/17 10/06/17 10/07/17 05:59 05:59 05:59 Intake Total 1050 Output Total 1200 Balance -150 PT 13.9 SEC (12.0-15.0) 10/05/17 09:10 INR 1.05 (0.83-1.16) 10/05/17 09:10 - Physical Exam Constitutional: no apparent distress Eyes: PERRL Ears, Nose, Mouth, Throat: moist mucous membranes Cardiovascular: regular rate and rhythym Respiratory: no respiratory distress Gastrointestinal: normoactive bowel sounds, soft, non-tender abdomen Genitourinary: no bladder fullness Skin: warm Musculoskeletal: other (right groin with min swelling, palpable femoral, pedal pulse) Neurologic: AAOx3, CN II-XII Intact Psychiatric: interacting appropriately ICD10 Worksheet Patient Problems: Problems Problem Status Onset Groin hematoma Acute Chest pain Acute
[2017-10-06] MEDS ORDERED: HYDROCODONE/APAP 5/325 TAB PO PRN (08:51)
[2017-10-06] MEDS ORDERED: ATORVASTATIN CALCIUM 20 MG TAB PO SCH (09:00)
[2017-10-06] MEDS ORDERED: CLOPIDOGREL BISULFATE 75 MG TAB PO SCH (09:00)
--- NOTE | 2017-10-06 11:57 | ASMTCMCOM ---
CM Note CM Note Notes: Spoke w/RN, no dc needs identified. Anticipate pt will dc home w/support of when medicall stable. CM available for any changes. DC Plan: Independent Date Signed: 10/06/2017 11:56 AM Electronically Signed By:Ivory Cline RN
[2017-10-06] MEDS ORDERED: MAGNESIUM HYDROXIDE 30 ML UDCUP PO PRN (12:20)
[2017-10-06] MEDS ORDERED: POLYETHYLENE GLYCOL 3350 17 GM PKT PO PRN (12:20)
[2017-10-06] MEDS ORDERED: BISACODYL 10 MG SUPP PR PRN (12:20)
[2017-10-06] MEDS ORDERED: LACTULOSE 20 GM/30 ML UDCUP PO PRN (12:20)
[2017-10-06] MEDS ORDERED: SENNOSIDES/DOCUSATE SODIUM TAB PO SCH (12:30)
[2017-10-06] MEDS ORDERED: traMADol 50 MG TAB PO PRN (13:23)
[2017-10-06 16:06] VITALS: BP 106/78
--- NOTE | 2017-10-06 19:29 | GDS ---
[f rep st] DISCHARGE SUMMARY DISCHARGE DIAGNOSES: 1. Right groin hematoma, status post catheterization. 2. Palpitations, tachycardia. 3. Nonobstructive coronary artery disease. HISTORY OF PRESENT ILLNESS: A pleasant 57-year-old male who has recently been in the ER in the last month several times for chest discomfort. This led to an outpatient stress test which was abnormal a nd led to a cardiac catheterization [address] Gregory initially began with this and was concern ed for a clot in the LAD. Dr. Mejia was called in who performed FFR which revealed there was no s ignificant clot in the ALD, but rather showed a 40% stenosis upon which no intervention was taken. The patient complained of presyncopal episodes associated with his palpitations and tachycardia. He had a recent upper and lower endoscopy for similar and is awaiting those results. He is concerned ab out potentially being poisoned by woodworking supplies. He drinks only tea now. No alcohol or coffee. HOSPITAL COURSE BY PROBLEM: 1. Post cardiac catheterization groin hematoma: He underwent ultrasound and pelvic CT, which was ne gative for pseudoaneurysm or fistula. Hematoma has now resolved. It is lime kiln tender, but has improv ed with low-dose tramadol and ice. I spoke with Dr. Ling who recommended restarting Plavix in 3 d ays. Patient cannot take aspirin due to allergies. He has a followup with Cardiology next Sunday. 2. Tachycardia and palpitations. He has a normal TSH in June 2017. His echocardiogram was unre vealing here with normal LV function. I recommend he follow up with Cardiology and consider outpatie nt Holter monitor. 3. Nonobstructive coronary artery disease. Will resume statin. Hold Plavix for 3 days. He is not on an aspirin due to allergy. DISPOSITION: Patient is stable for discharge home. NEW MEDICATIONS: Tramadol 25 mg, dispense 10. FOLLOWUP: Cardiology as previously scheduled next week. Time spent coordinating discharge greater than 35 minutes, reassuring patient and , giving strict return precautions and coordinating discharge plan. /[id number]/MODL
== END 2017-10-06 17:44 | disposition home or self-care (01) ==
LOC: EDUNIT# → F3E 15:07
PROVIDERS: ADMIT Student in an Organized Health Care Education/Training Program; ATTEND Student in an Organized Health Care Education/Training Program
DX: I97.630 Postprocedural hematoma of a circulatory system organ or structure following a cardiac catheterization (principal); I25.10 Atherosclerotic heart disease of native coronary artery without angina pectoris; Z95.9 Presence of cardiac and vascular implant and graft, unspecified
CPT/HCPCS: G0378; J2270; Q9967

== ENCOUNTER 2017-10-07 08:41 | Observation (INO) | payer OTHER ==
[2017-10-07] MEDS ORDERED: HYDROmorphONE/DILAUDID 2 MG/ML INJ IVP ONE (09:05)
--- NOTE | 2017-10-07 09:11 | EDPHY ---
H & P Stated Complaint: groin pain Time Seen by Provider: 10/07/17 08:42 HPI/ROS: CHIEF COMPLAINT: Right groin pain HISTORY OF PRESENT ILLNESS: This is a 57-year-old male who underwent cardiac catheterization on October 03. The procedure was initiated by Dr. Gregory and Dr. Goldberg he 0 was called in because of suspected clot in the LAD. It was discovered that there was a 40% stenosis, no intervention taken. He return to the hospital on October 05 with pain and swelling in the right groin. He underwent an ultrasound and a pelvic CT scan which were negative for pseudoaneurysm or AV fistula. He was found to have hematoma at that site. He received morphine and a dose of Vicodin with some improvement. He did not care for the side effects of the Vicodin and was transitioned to tramadol 25 mg q.6 hours. He was discharged from the hospital last night on this medication. Prior to discharge she was able to walk and was relatively pain-free. However when he returned home he had pain while walking from the car to the sofa and noted some increased swelling of the right groin. He then went to bed and upon awakening had worse groin pain. About an hour and half ago he took tramadol 25 mg. The pain continued to worsen and became severe enough that he called an ambulance for transport. During the ambulance ride he was given fentanyl 200 mg IV along with Zofran 4 mg IV. Prior to this medication he rated his pain as a"10". He now rates it at a"7". He has not had fever. He does not note any significant swelling at the site of his catheterization but states that it is mildly swollen. That area is not warm or red, per his report. He has been urinating. He has not had a bowel movement today or yesterday. REVIEW OF SYSTEMS: A ten point review of systems was performed and is negative with the exception of the items mentioned in the HPI. He has a history of presyncope associated with palpitations and tachycardia. Past medical history: 1. Presyncope 2. Nonobstructive coronary artery disease status post catheterization 3. Right brain hematoma, status post cardiac catheterization Past surgical history: Noncontributory Social history: He lives with his . General Appearance: Alert. Vital signs reviewed. Blood pressure 134/72, heart rate 104 at triage. He appears mildly uncomfortable at the time of my interview. Eyes: Pupils equal and round, no conjunctival injection, no discharge. Anicteric. Respiratory: Lungs are clear to auscultation; no wheezes, rales, or rhonchi. Cardiovascular: Regular rate and rhythm; no murmur, rub, or gallop. Gastrointestinal: Abdomen is soft and nontender, no masses or organomegaly, bowel sounds normal. Skin: Warm and dry, no rashes on exposed skin, normal color. Groin: Mild swelling in the left right groin, no warmth or erythema. He is quite tender at the site of his catheterization and resists any firm palpation in this region. Pulses: 2+ left femoral pulse, the unable to palpate right femoral positive because patient cannot tolerate any pressure on this region. 2+ bilateral dorsalis pedis pulses. Extremities: No lower extremity edema, no calf tenderness or swelling. Neurological: Alert and oriented. Moving all four extremities easily and equally. Psychiatric: Normal affect. - Medical/Surgical History Hx Asthma: No Hx Chronic Respiratory Disease: No Hx Diabetes: No Hx Cardiac Disease: No Hx Renal Disease: No Hx Cirrhosis: No Hx Alcoholism: No Hx HIV/AIDS: No Hx Splenectomy or Spleen Trauma: No Other PMH: NOSE SURGERY, heart cath 10/03 for 40% LAD and prescribed medical managment, colonoscopy and upper endoscopy, HTN - Social History Smoking Status: Never smoked Constitutional: Initial Vital Signs Temperature (C) 36.9 C 10/07/17 08:49 Heart Rate 106 H 10/07/17 08:49 Respiratory Rate 16 10/07/17 08:49 Blood Pressure 134/72 H 10/07/17 08:49 O2 Sat (%) 98 10/07/17 08:49 O2 Delivery Mode Nasal Cannula O2 (L/minute) 2 Allergies/Adverse Reactions: aspirin Allergy (Verified 10/03/17 08:51) Swelling/neck,face,throat Home Medications: Medication Instructions Recorded Atorvastatin Calcium [Lipitor 20 20 mg PO DAILY #30 tab 10/03/17 mg (*)] Clopidogrel Bisulfate [Plavix] 75 mg PO DAILY #30 tablet 10/06/17 traMADol [Ultram 50 mg (*)] 25 mg PO Q6H PRN 10/07/17 Medical Decision Making ED Course/Re-evaluation: Continued right groin pain status post catheterization. On the , 2 days ago , he had a pelvic CT and an ultrasound done which ruled out pseudoaneurysm or AV fistula. He does not have significant swelling at this site this morning and there are no signs of cellulitis. He is not febrile. In the emergency department he is being given 0.5 mg IV Dilaudid for pain control. He received 200 mcg of fentanyl en route. 9:50 a.m.: Patient feel somewhat better with 0.5 mg Dilaudid IV, however he still rates his pain as a "6 or 7". A 2nd dose of 0.5 mg high IV Dilaudid will be given. I suspect that he is going to require hospitalization again for pain control. 10:30 a.m.: Patient declined 2nd dose of Dilaudid he, as it made him feel too foggy. It seems that this morning's pain was initiated by a back spasm that began when he moved in the bed. Will try a muscle relaxant to see if that will help. Valium 2.5 mg IV will be given. However, I still am not optimistic about him successfully returning home this morning. 11:15 a.m.. Hospitalization has been arranged. Differential Diagnosis: Considered a differential diagnosis that includes but is not limited to AV fistula, pseudoaneurysm, hematoma, infection, and inadequate use of pain medication. - Data Points Medications Given: Sodium Chloride (Ns) 1,000 mls @ 125 mls/hr IV CONT LOTTIE Stop: 10/07/17 22:29 Last Admin: 10/07/17 15:00 Dose: 1,000 mls Tramadol HCl (Ultram) 50 mg PO Q6HRS PRN PRN Reason: Pain, Moderate Able to Take PO Stop: 04/05/18 14:30 Last Admin: 10/07/17 15:01 Dose: 50 mg Discontinued Medications Diazepam (Valium) 2.5 mg IVP EDNOW ONE Stop: 10/07/17 10:36 Last Admin: 10/07/17 10:37 Dose: 2.5 mg Hydromorphone HCl (Dilaudid) 0.5 mg IVP EDNOW ONE Stop: 10/07/17 09:16 Last Admin: 10/07/17 09:18 Dose: 0.5 mg Departure - Departure Disposition: [facility] Inpatient Acute Clinical Impression: Groin hematoma Qualifiers: Encounter type: subsequent encounter Qualified Code(s): S30.1XXD - Contusion of abdominal wall, subsequent encounter Condition: Good
[2017-10-07] MEDS ORDERED: HYDROmorphONE/DILAUDID 1 MG/ML INJ IVP ONE (09:15)
[2017-10-07] MEDS ORDERED: DIAZEPAM 5 MG/ML 1 ML SYR ONE (10:35)
[2017-10-07] MEDS ORDERED: DIAZEPAM 5 MG/ML 1 ML SYR IVP ONE (10:35)
[2017-10-07] MEDS ORDERED: ONDANSETRON 4 MG/2 ML VIAL IVP PRN (11:45)
[2017-10-07] MEDS ORDERED: ONDANSETRON DISINTEGRATING 4 MG TAB PO PRN (11:45)
[2017-10-07] MEDS ORDERED: HYDROmorphONE/DILAUDID 1 MG/ML INJ IVP PRN (14:28)
[2017-10-07] MEDS ORDERED: NS 1,000 ML IV SCH (14:30)
[2017-10-07] MEDS ORDERED: traMADol 50 MG TAB PO PRN (14:31)
[2017-10-07] MEDS: DIAZEPAM 5 MG TAB PO PRN (17:12)
--- NOTE | 2017-10-07 17:22 | GHP ---
[f rep st] HISTORY AND PHYSICAL DATE OF ADMISSION: 10/07/2017 CHIEF COMPLAINT: Back spasm, right groin pain. HISTORY OF PRESENT ILLNESS: A 57-year-old male with history of coronary disease who was discharged yesterday after being observed for a right post catheterization hematoma. Initially presented on the with a baseball sized swelling in his right groin. He was monitored here with improvement of his symptoms. He had a pelvic CTA that was negative for pseudoaneurysm or fistula. His pain was controlled on tramadol along with icing. He was discharged home in good condition yesterday. He awoke this morning at 6 a.m. with severe bilateral lumbar spasms which provokes increased pain in his right groin. He says there is minimal swelling in the groin, but nothing like when he initially presented. The pain in his groin was "streaking pain" (02/20). Thus, he called 911. The patient's Plavix was placed on hold for 3 days and does not take an aspirin due to allergy. REVIEW OF SYSTEMS: I completed a 10-point review of systems. Negative except as noted in HPI. PAST MEDICAL HISTORY: Coronary artery disease: Cardiac catheterization 2017, showed 40% LAD stenosis. No intervention done. Opted for medical management. Hypertension, suspected anxiety, palpitations and tachycardia. PAST SURGICAL HISTORY: Cardiac cath 10/03/2017, nasal polyp surgery. FAMILY HISTORY: Mother with hypertension. SOCIAL HISTORY: Lives in [place] with his . No alcohol, tobacco, or illicits. He quit drinking caffeine. No longer smokes. HOME MEDICATIONS: Tramadol 25 mg q.6 hours p.r.n., Plavix, which is on hold for 3 days, Atorvastatin 20 mg daily. ALLERGIES: Aspirin. PHYSICAL EXAMINATION: VITAL SIGNS: Temperature 36.9, blood pressure 117/69, heart rate in 90s to 100, respirations 16, 97% on 1 L. GENERAL: He is lying in bed and anxious, but no acute distress. HEENT: PERRLA. Mildly dry mucous membranes. CV: Regular rate and rhythm. No murmurs, gallops, or rubs. LUNGS : Clear. ABDOMEN: Soft, nontender. : No Higgins. MUSCULOSKELETAL: No lumbar tenderness on my exam. Right groin site is with minimal swelling. No erythema. Has palpable femoral pulses. There are no ecchymoses over flank. NEURO: 2 through 12 intact. PSYCH: Alert and oriented x3, anxious. LABS: WBC is 9, hemoglobin 14, hematocrit 42, platelets 237. Sodium 140, potassium 5.2, chloride 104, carbon dioxide 25, anion gap 11, creatinine 0.9, glucose 115, calcium 9.2. ASSESSMENT AND PLAN: 1. Recurrent right groin pain: elicited by back spasms. He has no evidence of hematoma over flank or tenderness in his back, H/H stable. CT 10/03, negative for no pseudoaneurysm/fistula. Continue pain control with p.o. tramadol, Dilaudid IV if needed. Continue ice packs. Valium and heating pad for back spasms. Suspect anxiety is driving part of this. Valium has seemed to control some of these symptoms. 2. Nonobstructive coronary disease: Holding Plavix with hematoma. Continue statin. He is not on aspirin due to allergy. 3. History of palpitations, tachycardia: This has been an issue for the last couple of months. He does not drink alcohol. He drinks only black tea. He is supposed to follow up with Cardiology next week. I would recommend a Holter monitor. He had a TSH done in June that was normal. DIET: Regular. DVT PROPHYLAXIS: SCDs given hematoma. DISPOSITION: Patient warrants observation admission given uncontrolled pain warranting IV opioids and Valium for spasms. /[id number]/MODL MTDD
--- NOTE | 2017-10-07 18:41 | CPEKG ---
Heart Rate: 99 RR Interval: 606 P-R Interval: 140 QRSD Interval: 80 QT Interval: 340 QTC Interval: 437 P [place]: 31 QRS [place]: 83 T Wave [place]: 24 EKG Severity - BORDERLINE ECG - EKG Impression: SINUS RHYTHM EKG Impression: LOW VOLTAGE IN FRONTAL LEADS EKG Impression: BORDERLINE T ABNORMALITIES, ANTERIOR LEADS Electronically Signed By: Geraldo Sapp 08-Oct-2017 10:28:38
[2017-10-07] MEDS: ACETAMINOPHEN 325 MG TAB PO PRN (19:39)
--- NOTE | 2017-10-08 08:18 | HOSPPROG ---
Hospitalist Progress Note Assessment/Plan: #Post-cath groin hematoma/: pain still not controlled, sadi with standing. He has declined tramadol. -stress that he should take Valium, ice. Minimize exertion, urinal, schedule APAP -CT 10/03 negative for pseudoaneurysm/fistula -anxiety playing role; is very fearful of returning hosp #Constipation: bowel regimen #Back spasms: resolved. Initially considered retroperitoneal hemorrhage, but pain resolved, no flank hematoma and H/H stable #Nonobstructive CAD: LAD 40% stenosis, no intervention. Statin. Restart Plavix tomorrow. Allergy to ASA #Palps/tachycardia: has cards appt Sunday. TSH normal #Diet: cardiac #DVT ppx: SCDs #Disp: inpatient admission for pain control, repeat H/H. DC in morning if improved Time spent on visit: 45 min counseling patient on pain management. Discussed case with Dr. Alexis who agrees with plan Subjective: still having groin pain, sadi with walking. Declined tramadol, bc causing headache Objective: Vital Signs Temp Pulse Resp BP Pulse Ox 36.8 C 89 14 122/74 H 95 10/08/17 07:37 10/08/17 07:37 10/08/17 07:37 10/08/17 07:37 10/08/17 07:37 Laboratory Results 10/07/17 Unknown 10/08/17 04:16 10/07/17 10/08/17 10/09/17 05:59 05:59 05:59 Intake Total 700 Output Total 880 500 Balance -180 -500 - Time Spent With Patient Time Spent with Patient: greater than 35 minutes Time Spent with Patient: Greater than 35 minutes spent on this patients care, greater than 50% of time spent counseling, educating, and coordinating care regarding the above mentioned plan. - Physical Exam Constitutional: uncomfortable Eyes: PERRL Ears, Nose, Mouth, Throat: moist mucous membranes, hearing normal Cardiovascular: regular rate and rhythym, no murmur, rub, or gallop Respiratory: no respiratory distress, no rales or rhonchi Gastrointestinal: normoactive bowel sounds Genitourinary: no bladder fullness Skin: warm Musculoskeletal: other (right groin cath site with min swelling/bruising. TTP with min pressure. +2 fem pulse) Neurologic: AAOx3 Psychiatric: anxious ICD10 Worksheet Patient Problems: Problems Problem Status Onset Groin hematoma Acute Chest pain Acute
[2017-10-08] MEDS: ATORVASTATIN CALCIUM 20 MG TAB PO SCH (08:30)
[2017-10-08] MEDS: ACETAMINOPHEN 325 MG TAB PO PRN (11:46)
--- NOTE | 2017-10-08 12:51 | ASMTCASEMG ---
Living Arrangements What is your living Answers: With Spouse arrangement? Who do you live with? Type Of Residence What kind of residence do Answers: House you live in? Discharge Plan Comments Coordination Status Comments Notes: Patient had a cardiac catheterization on 10/03/17. He presented to [facility] on the for a baseball size swelling in his right groin. He was monitored with improvement of his symptoms and was dc'ed yesterday. Patient awoke this morning with severe bilateral lumbar spasms which provokes increased pain in his right groin, called 911 and returned to the hospital. Patient has been admitted for observation given uncontrolled pain warrenting IV opiods. PT states patient has no needs and can do outpatient therapy if he needs follow-up. CM available if d/c needs arise. Most likely patient will d/c independently. Date Signed: 10/08/2017 12:50 PM Electronically Signed By:Maryann Maldonado LCSW
[2017-10-08] MEDS ORDERED: MAGNESIUM HYDROXIDE 30 ML UDCUP PO PRN (14:53)
[2017-10-08] MEDS ORDERED: POLYETHYLENE GLYCOL 3350 17 GM PKT PO PRN (14:53)
[2017-10-08] MEDS ORDERED: BISACODYL 10 MG SUPP PR PRN (14:53)
[2017-10-08] MEDS ORDERED: LACTULOSE 20 GM/30 ML UDCUP PO PRN (14:53)
[2017-10-08] MEDS: ACETAMINOPHEN 500 MG TAB PO SCH ×2 (17:04→22:00)
[2017-10-08] MEDS: DIAZEPAM 5 MG TAB PO PRN (18:40)
[2017-10-08] MEDS: SENNOSIDES/DOCUSATE SODIUM TAB PO SCH (20:21)
[2017-10-09 07:13] VITALS: BP 109/77
[2017-10-09] MEDS: SENNOSIDES/DOCUSATE SODIUM TAB PO SCH (07:40)
[2017-10-09] MEDS: ATORVASTATIN CALCIUM 20 MG TAB PO SCH (07:41)
[2017-10-09] MEDS: DIAZEPAM 5 MG TAB PO PRN (07:41)
[2017-10-09] MEDS: ACETAMINOPHEN 500 MG TAB PO SCH (10:34)
--- NOTE | 2017-10-09 15:21 | GDS ---
[f rep st] DISCHARGE SUMMARY DISCHARGE DIAGNOSES: Include: 1. Right groin hematoma, status post cardiac catheterization. 2. Muscular back spasms. 3. Nonobstructive coronary artery disease. 4. Palpitations. HISTORY OF PRESENT ILLNESS: This is a 57-year-old male who presents with right groin pain, status po st cardiac catheterization. For details of patient's initial presentation, please see the history an d physical dated 10/07/2017. CONSULTATIVE SERVICES: None. PROCEDURES: None. HOSPITAL COURSE: 1. Acute right groin hematoma, status post cardiac catheterization. Patient developed a sizable hem atoma the morning after catheterization was hospitalized, discharged, and then rehospitalized for ass ociated right groin pain and back spasms. The patient was treated for both. On the day of dispositi on, there is very minimal hematoma visible with minimal pain. The patient will resume his Plavix the rapy the day after disposition. 2. Muscular back spasms. Patient has responded well to Valium. We will continue this p.r.n. for th e next day or two. 3. Nonobstructive coronary artery disease. Patient will follow in the outpatient setting with [facility] this week for postprocedural followup. MEDICATIONS AT TIME OF TRANSFER: Please reference the medication reconciliation printed on 8. FOLLOWUP APPOINTMENTS: Include with [facility] at the end of this week. PENDING STUDIES: At the time of this dictation none. TIME SPENT: I spent greater than 30 minutes in the planning and coordination of this discharge. /[id number]/MODL
== END 2017-10-09 12:56 | disposition home or self-care (01) ==
LOC: EDUNIT# → F3E 11:45
PROVIDERS: ADMIT Internal Medicine; ATTEND Hospitalist
DX: I97.630 Postprocedural hematoma of a circulatory system organ or structure following a cardiac catheterization (principal); M62.830 Muscle spasm of back; R10.9 Unspecified abdominal pain; R00.2 Palpitations; R00.0 Tachycardia, unspecified; K59.00 Constipation, unspecified; I25.10 Atherosclerotic heart disease of native coronary artery without angina pectoris; K21.9 Gastro-esophageal reflux disease without esophagitis; I10 Essential (primary) hypertension; Z87.891 Personal history of nicotine dependence; Z95.9 Presence of cardiac and vascular implant and graft, unspecified; Z88.6 Allergy status to analgesic agent
CPT/HCPCS: 96374; 97161-GP; G0378; J1170; J3360

== ENCOUNTER 2017-11-19 04:36 | Observation (INO) | payer OTHER ==
--- NOTE | 2017-11-19 04:47 | EDPHY ---
H & P Stated Complaint: r groin pain swellin from cath site r groin 10/03 Time Seen by Provider: 11/19/17 04:47 HPI/ROS: HPI CHIEF COMPLAINT: Right groin pain and swelling HISTORY OF PRESENT ILLNESS: 57-year-old male, initially presented on the 03 of November for cardiac catheterization and chest pain, slowly developed a right groin hematoma was admitted on the and . Patient presents emergency room with increasing right groin pain and swelling. He states that for the past 6 weeks he has had ongoing groin pain. However since 8 o'clock last night he has had increasing groin pain and swelling. He describes the pain 8/10 located right groin, worse when he goes to move his leg her walk. Denies any fever. Denies chest pain or shortness of breath. He is not on any anticoagulation at this time. Past Medical History: Coronary artery disease. Past Surgical History: Recent cardiac catheterization. Social History: Denies drugs alcohol tobacco. Family History: Denies significant family history ROS REVIEW OF SYSTEMS: A comprehensive 10 point review of systems is otherwise negative aside from elements mentioned in the history of present illness. Exam Constitutional triage nursing summary reviewed, vital signs reviewed, awake/ alert. Eyes normal conjunctivae and sclera, EOMI, PERRLA. HENT normal inspection, atraumatic, moist mucus membranes, no epistaxis, neck supple/ no meningismus, no raccoon eyes. Respiratory clear to auscultation bilaterally, normal breath sounds, no respiratory distress, no wheezing. Cardiovascular rate normal, regular rhythm, no murmur, no edema, distal pulses normal. Gastrointestinal soft, non-tender, no rebound, no guarding, normal bowel sounds, no distension, no pulsatile mass. Genitourinary no CVA tenderness. Musculoskeletal right groin: Right inguinal region, green/yellow ecchymosis, moderately tender palpation over the inguinal region. His right leg distally is neurovascular intact with good radial pulse. Warm extremity. Good cap refill. Palpable hematoma in the right inguinal region. Small. no midline vertebral tenderness, full range of motion, no calf swelling, no tenderness of extremities, no meningismus, good pulses, neurovascularly intact. Skin pink, warm, & dry, no rash, skin atraumatic. Neurologic awake, alert and oriented x 3, AAOx3, moves all 4 extremities equally, motor intact, sensory intact, CN II-XII intact, normal cerebellar, normal vision, normal speech. Psychiatric normal mood/affect. Heme/Lymph/Immune no lymphadenopathy. Differential Diagnosis: Includes but is not limited to in a particular order post cath site hematoma, scar tissue, inflammation, pseudoaneurysm Medical Decision Making: Plan for this patient ultrasound right groin for pseudoaneurysm, check basic blood work, IV Dilaudid for pain control re- evaluate. Re-evaluation: Ultrasound of the right groin shows no significant pseudoaneurysm are fistula, no large hematoma. Small area of hypoechoic region. Called to me by Dr. Pete. Scar tissue. [id number]: After further discussion with the patient they prefer to be admitted for further evaluation of this intractable right groin pain. Rather severe tonight. Explained I will have a great answer for his right groin pain. His leg is neurovascular intact good distal pulse warm extremity. No signs infection on exam. It is possible given his ongoing intractable right groin pain he has a nerve injury. Will recommend hospital admission for pain control, and Cardiology/ surgery to see. Source: Patient - Personal History Current Tetanus/Diphtheria Vaccine: No Current Tetanus Diphtheria and Acellular Pertussis (TDAP): No - Medical/Surgical History Hx Asthma: No Hx Chronic Respiratory Disease: No Hx Diabetes: No Hx Cardiac Disease: No Hx Renal Disease: No Hx Cirrhosis: No Hx Alcoholism: No Hx HIV/AIDS: No Hx Splenectomy or Spleen Trauma: No Other PMH: NOSE SURGERY, heart cath 10/03 for 40% LAD and prescribed medical managment, colonoscopy and upper endoscopy, HTN - Social History Smoking Status: Never smoked Constitutional: Initial Vital Signs Temperature (C) 36.3 C 11/19/17 04:38 Heart Rate 89 11/19/17 04:38 Respiratory Rate 18 11/19/17 04:38 Blood Pressure 103/73 11/19/17 04:38 O2 Sat (%) 97 11/19/17 04:38 O2 Delivery Mode Room Air Allergies/Adverse Reactions: aspirin Allergy (Verified 10/03/17 08:51) Swelling/neck,face,throat Home Medications: Medication Instructions Recorded traMADol [Ultram 50 mg (*)] 25 mg PO Q6H PRN 10/07/17 Acetaminophen [Tylenol ES 500 mg 1,000 mg PO TID tab 10/09/17 (*)] Diazepam [Valium 5 MG (*)] 5 mg PO Q6HRS PRN #10 tab 10/09/17 Sennosides/Docusate Sodium 1 - 2 tab PO BID tab 10/09/17 [Senokot-S] Medical Decision Making - Data Points Laboratory Results: Laboratory Results 11/19/17 05:03 11/19/17 05:03 11/19/17 11/19/17 05:03 05:03 WBC 4.80 10^3/uL 10^3/uL (3.80-9.50) RBC 4.95 10^6/uL 10^6/uL (4.40-6.38) Hgb 14.7 g/dL g/dL (13.7-17.5) Hct 42.9 % % (40.0-51.0) MCV 86.7 fL fL (81.5-99.8) MCH 29.7 pg pg (27.9-34.1) MCHC 34.3 g/dL g/dL (32.4-36.7) RDW 12.1 % % (11.5-15.2) Plt Count 236 10^3/uL 10^3/uL (150-400) MPV 9.8 fL fL (8.7-11.7) Neut % (Auto) 63.1 % % (39.3-74.2) Lymph % (Auto) 25.4 % % (15.0-45.0) [place] % (Auto) 9.0 % % (4.5-13.0) Eos % (Auto) 1.5 % % (0.6-7.6) Baso % (Auto) 0.8 % % (0.3-1.7) Nucleat RBC Rel Count 0.0 % % (0.0-0.2) Absolute Neuts (auto) 3.03 10^3/uL 10^3/uL (1.70-6.50) Absolute Lymphs (auto) 1.22 10^3/uL 10^3/uL (1.00-3.00) Absolute Monos (auto) 0.43 10^3/uL 10^3/uL (0.30-0.80) Absolute Eos (auto) 0.07 10^3/uL 10^3/uL (0.03-0.40) Absolute Basos (auto) 0.04 10^3/uL 10^3/uL (0.02-0.10) Absolute Nucleated RBC 0.00 10^3/uL 10^3/uL (0-0.01) Immature Gran % 0.2 % % (0.0-1.1) Immature Gran # 0.01 10^3/uL 10^3/uL (0.00-0.10) Sodium 139 mEq/L mEq/L (135-145) Potassium 3.6 mEq/L mEq/L (3.3-5.0) Chloride 108 mEq/L mEq/L (97-110) Carbon Dioxide 24 mEq/l mEq/l (22-31) Anion Gap 7 mEq/L L mEq/L (8-16) BUN 14 mg/dL mg/dL (7-23) Creatinine 0.8 mg/dL mg/dL (0.7-1.3) Estimated GFR > 60 Glucose 104 mg/dL H mg/dL (70-100) Calcium 9.7 mg/dL mg/dL (8.5-10.4) Medications Given: Discontinued Medications Hydromorphone HCl (Dilaudid) 1 mg IVP EDNOW ONE Stop: 11/19/17 04:58 Last Admin: 11/19/17 05:08 Dose: 1 mg Ondansetron HCl (Zofran) 4 mg IVP EDNOW ONE Stop: 11/19/17 05:01 Last Admin: 11/19/17 05:07 Dose: 4 mg Departure - Departure Disposition: [facility] Inpatient Acute Clinical Impression: Groin pain Qualifiers: Laterality: right Qualified Code(s): R10.31 - Right lower quadrant pain Condition: Fair Referrals: Annette Lyon MD [Primary Care Provider] - As per Instructions
[2017-11-19] MEDS ORDERED: HYDROmorphONE/DILAUDID 2 MG/ML INJ IVP ONE (04:57)
[2017-11-19] MEDS ORDERED: ONDANSETRON 4 MG/2 ML VIAL IVP ONE (05:00)
[2017-11-19] MEDS ORDERED: HYDROmorphONE/DILAUDID 1 MG/ML INJ ONE (05:05)
[2017-11-19 05:17] LABS: PLATELET COUNT 236 10^3/uL (150-400)
[2017-11-19] MEDS ORDERED: ACETAMINOPHEN 325 MG TAB PO PRN (06:40)
[2017-11-19] MEDS ORDERED: ONDANSETRON 4 MG/2 ML VIAL IVP PRN (06:40)
[2017-11-19] MEDS ORDERED: HYDROCODONE/APAP 5/325 TAB PO PRN (06:43)
[2017-11-19] MEDS ORDERED: HYDROCODONE/APAP 10/325 TAB PO PRN (06:43)
[2017-11-19] MEDS ORDERED: GABAPENTIN 300 MG CAP PO PRN (06:44)
--- NOTE | 2017-11-19 09:24 | PDGENHP ---
History and Physical - Chief Complaint right groin pain and sensitivity - History of Present Illness Source - Patient provides history and appears reliable. EMR reviewed and case discussed with ED provider. HPI - Pleasant 57 yo M with pmhx significant for CAD with recent cath 40% stenosis LAD, postprocedural hematoma, HLD, chronic back pain who presents to the ED today with complaints of acute exacerbation of ongoing right groin pain. 10/03/17 - patient admitted with chest pain and underwent cardiac cath with findings as noted above. no stent. med management. 10/05/17 - patient returned with groin swelling and pain. Patient was found to have hematoma. 10/07/17 - patient presented again with right groin pain and swelling. Patient reports that his pain has been on going since discharge but had been slowly improvement. Patinent denies any heavy lifting, trauma, or near falls. He reports worsening pain with flare in his back pain/spasms. Patient also reports exquisite sensitivity over right inquinal region. denies any redness except with exacerbation he has noted dorsum right foot reddens. Also occasional numbness/tingling running down his right leg. Patient denies any fevers/chills. He did try taking valium and tramadol without improvement. Patient with an allergy to ASA. Patient concerned that after 6 weeks he continues to have right groin pain. History Information - Allergies/Home Medication List Allergies/Adverse Reactions: aspirin Allergy (Verified 10/03/17 08:51) Swelling/neck,face,throat Home Medications: traMADol [Ultram 50 mg (*)] 25 mg PO Q6H PRN 10/07/17 [Last Taken 10/07/17 07:00 ] I have personally reviewed and updated: family history, medical history, social history, surgical history - Past Medical History coronary artery disease (cath 10/03/17 with nonocclusive disease 40% stenosis LAD with postprocedural hematoma resolved. ) - Surgical History Additional surgical history: cardiac cath, nasal polyp resection, c/scope, egd. - Family History Positive for: hypertension (mother) - Social History Smoking Status: Former smoker Alcohol Use: None Drug Use: None Additional social history: Patient is . COR - FULL Review of Systems Review of Systems: ROS: 10pt was reviewed & negative except for what was stated in HPI & below Constitutional: Reports: no symptoms EENMT: Reports: no symptoms Cardiac: Reports: no symptoms Respiratory: Reports: no symptoms Gastrointestinal: Reports: no symptoms Genitourinary: Reports: no symptoms Muscolosketal: Reports: back pain, other (right groin pain as noted HPI.) Skin: Reports: other (right groin sensitivity over cath site) Neurological: Reports: anxiety, numbness, tingling Physical Exam Physical Exam: Selected Entries 10/09/17 07:12 Heart Rate 88 Respiratory 14 Rate O2 Sat (%) 93 Temperature (C) 36.7 C Blood Pressure 109/77 Mean Arterial 87 Pressure (MAP) Activity During At Rest Vital Signs O2 Delivery Room Air Mode Blood Pressure Right Source Upper Arm Temperature Oral Source Heart Rate Automatic Source Temp Pulse Resp BP Pulse Ox 36.7 C 81 12 138/80 H 93 11/19/17 08:49 11/19/17 08:49 11/19/17 08:49 11/19/17 08:49 11/19/17 08:16 Constitutional: no apparent distress, uncomfortable, other (NAD. patient lays on gurney. at bedside. Patient increasingly anxious, tremulous during interview. ) Eyes: PERRL, anicteric sclera, EOMI (grossly noraml), No scleral injection Ears, Nose, Mouth, Throat: moist mucous membranes, No poor dentition Cardiovascular: regular rate and rhythym, no murmur, rub, or gallop, pulses symmetric bilaterally, other (<2 second cap refill.), No edema Peripheral Pulses: 2+: dorsalis-pedis (R), dorsalis-pedis (L) Respiratory: no respiratory distress, no rales or rhonchi, clear to auscultation , No inspiratory crackles, No respiratory distress Gastrointestinal: normoactive bowel sounds, soft, non-tender abdomen, no palpable masses, No distension Genitourinary: no bladder tenderness, No kwan in urethra Skin: warm, normal color, no rashes or abrasions, No erythema Musculoskeletal: full muscle strength, no muscle tenderness, normal joint ROM, other (patient sits up independently. moves all extremities. ) Neurologic: AAOx3, sensation intact bilaterally, other (grossly normal exam, nonfocal.), No facial droop Psychiatric: interacting appropriately, not encephalopathic, thought process linear, anxious Lab Data & Imaging Review 11/19/17 05:03 07/09/18 05:03 WBC 4.80 10^3/uL (3.80-9.50) 11/19/17 05:03 RBC 4.95 10^6/uL (4.40-6.38) 11/19/17 05:03 Hgb 14.7 g/dL (13.7-17.5) 11/19/17 05:03 Hct 42.9 % (40.0-51.0) 11/19/17 05:03 MCV 86.7 fL (81.5-99.8) 11/19/17 05:03 MCH 29.7 pg (27.9-34.1) 11/19/17 05:03 MCHC 34.3 g/dL (32.4-36.7) 11/19/17 05:03 RDW 12.1 % (11.5-15.2) 11/19/17 05:03 Plt Count 236 10^3/uL (150-400) 11/19/17 05:03 MPV 9.8 fL (8.7-11.7) 11/19/17 05:03 Neut % (Auto) 63.1 % (39.3-74.2) 11/19/17 05:03 Lymph % (Auto) 25.4 % (15.0-45.0) 11/19/17 05:03 Edmunds % (Auto) 9.0 % (4.5-13.0) 11/19/17 05:03 Eos % (Auto) 1.5 % (0.6-7.6) 11/19/17 05:03 Baso % (Auto) 0.8 % (0.3-1.7) 11/19/17 05:03 Nucleat RBC Rel Count 0.0 % (0.0-0.2) 11/19/17 05:03 Absolute Neuts (auto) 3.03 10^3/uL (1.70-6.50) 11/19/17 05:03 Absolute Lymphs (auto) 1.22 10^3/uL (1.00-3.00) 11/19/17 05:03 Absolute Monos (auto) 0.43 10^3/uL (0.30-0.80) 11/19/17 05:03 Absolute Eos (auto) 0.07 10^3/uL (0.03-0.40) 11/19/17 05:03 Absolute Basos (auto) 0.04 10^3/uL (0.02-0.10) 11/19/17 05:03 Absolute Nucleated RBC 0.00 10^3/uL (0-0.01) 11/19/17 05:03 Immature Gran % 0.2 % (0.0-1.1) 11/19/17 05:03 Immature Gran # 0.01 10^3/uL (0.00-0.10) 11/19/17 05:03 Sodium 139 mEq/L (135-145) 11/19/17 05:03 Potassium 3.6 mEq/L (3.3-5.0) 11/19/17 05:03 Chloride 108 mEq/L (97-110) 11/19/17 05:03 Carbon Dioxide 24 mEq/l (22-31) 11/19/17 05:03 Anion Gap 7 mEq/L (8-16) L 11/19/17 05:03 BUN 14 mg/dL (7-23) 11/19/17 05:03 Creatinine 0.8 mg/dL (0.7-1.3) 11/19/17 05:03 Estimated GFR > 60 11/19/17 05:03 Glucose 104 mg/dL (70-100) H 11/19/17 05:03 Calcium 9.7 mg/dL (8.5-10.4) 11/19/17 05:03 Imaging Review: Right Inguinal Ultrasound With Doppler Analysis History: Persistent extreme radiating pain at the site of previous puncture for cardiac catheterization. Comparison: Previous examination October 05, [address] on the same date. Findings: There is no pseudoaneurysm or AV fistula. In the soft tissues directly anterior to the patient's symptoms is a persistent curvilinear hypoechoic area measuring approximately 6 mm in maximum diameter. This area is not vascular and does not represent a pseudoaneurysm. The patient did have a hematoma around the common femoral artery in September best demonstrated on CT. Impression: Remnant hematoma versus scar related to the prior puncture site. Is there any concern for femoral nerve branch entrapment from an arterial plug (if one was used)? Results discussed with Dr. Zheng at 6:00 a.m. Final results of this emergency on-call study are concordant with the initial interpretation. Assessment & Plan Assessment: 57 yo M with hx nonocclusive CAD 40% stenosis LAD, chronic back pain and recent cardiac cath with persistent right groin pain and occasional numbness/tingling # Groin pain (Acute) - ddx including cutaneous/femoral neuralgia vs nerve entrapment vs less likely hernia. no evidence of thrombus or pseudoaneurysm. possible residual hematoma vs scar present. supportive care at this time with pain medications, ativan as tolerated. also consider gabapentin prn. Cardiology consulted to assist with evaluation/recommendations given persistent pain postcath. # CAD - nonocclusive disease. Patient was intolerant of statin therapy 2/2 myalgias and so discontinued this 1-2 weeks ago and reports improvement in those symptoms. #chronic back pain - supportive care. pain management as noted above. FEN - cardiac diet. electrolytes acceptable. SLIV. PPX - SCDs. consider lovenox if patient should stay additional day. COR - FULL. DIspo - Patient admitted to observation on PCU floor.
--- NOTE | 2017-11-19 11:10 | PDCARCONS ---
Cardiology Consult Reason for Consult: Right groin pain s/p cardiac catheterization 10/03/17. Chief Complaint: Ongoing right groin pain s/p cardiac cath 10/03/17 History of Present Illness: Peter is a 57-year-old male with a history of nonobstructive coronary artery disease. Peter had a heart catheterization performed by Dr. Parks on 10/03/17 because of ongoing chest pain and decreased appetite. His angiogram showed 40% mid LAD stenosis with FFR of 0.[address] Mejia. No intervention was performed. Peter is allergic to Aspirin and was instead started on Plavix as well as Atorvastatin. Two days post cath, Peter developed severe right groin pain. He had sudden pain in his leg when standing and then the groin region rapidly expanded and it looked like there was a potato under his skin. He was seen in the ED 10/05/17 and had an US and pelvic CT that were negative for pseudoaneurysm or AV fistula. The CT scan did show a hematoma. Peter returned to the ED on 10/07/17 with worsening right groin pain and severe low back pain. He was admitted for pain management and discharged home the following day. His right groin pain has remained present but manageable since his last hospitalization; however, over the past 24 hours his pain has worsened. He reports an area of swelling, redness, and tenderness near the puncture site from the previous heart cath. In addition, he admits to intermittent chest pain that he describes as a "dull chest pain." He has been pretty much couch bound for the past 6 weeks and has not felt well. If he tries to walk around he gets redness and swelling over the dorsum of his right foot with associated tingling like his foot is going to sleep. History Information - Allergies/Home Medication List Allergies/Adverse Reactions: aspirin Allergy (Verified 10/03/17 08:51) Swelling/neck,face,throat Home Medications: Acetaminophen [Tylenol ES 500 mg (*)] 500 mg PO TID 11/19/17 [Last Taken Unknown ] I have personally reviewed and updated: family history, medical history, social history, surgical history Past Medical History: - Past Medical History coronary artery disease, hyperlipidemia - Surgical History Additional surgical history: Cardiac catheterization performed 10/03/17 - Social History Smoking Status: Former smoker Alcohol Use: None Drug Use: None Additional social history: , at bedside. Peter stopped drinking alchol April 2017. Cardiac History - Cardiac History Past Cardiac History: CAD Cardiac Risk Factors: lipidemia Severity: mild Location: substernal Activities at Onset: activity [place] Risk Evaluation age greater or equal to 65: no greater or equal to 3 CAD risk factors: no known CAD(stenosis greater or eqaul to 50%): no ASA use in past 7 days: no severe angina(greater or equal to 2 episodes in 24hrs): no EKG ST changes greater or equal to 0.5mm: no positive cardiac marker: no Total Score: 0 [place] Score: 4.7% risk Physical Exam Physical Exam: Temp Pulse Resp BP Pulse Ox 36.7 C 81 12 138/80 H 93 11/19/17 08:49 11/19/17 08:49 11/19/17 08:49 11/19/17 08:49 11/19/17 08:16 Constitutional: no apparent distress, appears nourished Eyes: PERRL, anicteric sclera, EOMI Ears, Nose, Mouth, Throat: moist mucous membranes Cardiovascular: regular rate and rhythym Peripheral Pulses: 2+: carotid (R), carotid (L), femoral (R), femoral (L), dorsalis-pedis (R), dorsalis-pedis (L) Respiratory: no respiratory distress, no rales or rhonchi Gastrointestinal: normoactive bowel sounds Skin: warm, normal color Musculoskeletal: other (Bilateral lower extremity bony-fasciculations) Neurologic: AAOx3 Psychiatric: interacting appropriately, anxious Lab and Imaging 11/19/17 05:03 11/19/17 05:03 WBC 4.80 10^3/uL (3.80-9.50) 11/19/17 05:03 RBC 4.95 10^6/uL (4.40-6.38) 11/19/17 05:03 Hgb 14.7 g/dL (13.7-17.5) 11/19/17 05:03 Hct 42.9 % (40.0-51.0) 11/19/17 05:03 MCV 86.7 fL (81.5-99.8) 11/19/17 05:03 MCH 29.7 pg (27.9-34.1) 11/19/17 05:03 MCHC 34.3 g/dL (32.4-36.7) 11/19/17 05:03 RDW 12.1 % (11.5-15.2) 11/19/17 05:03 Plt Count 236 10^3/uL (150-400) 11/19/17 05:03 MPV 9.8 fL (8.7-11.7) 11/19/17 05:03 Neut % (Auto) 63.1 % (39.3-74.2) 11/19/17 05:03 Lymph % (Auto) 25.4 % (15.0-45.0) 11/19/17 05:03 Gibson % (Auto) 9.0 % (4.5-13.0) 11/19/17 05:03 Eos % (Auto) 1.5 % (0.6-7.6) 11/19/17 05:03 Baso % (Auto) 0.8 % (0.3-1.7) 11/19/17 05:03 Nucleat RBC Rel Count 0.0 % (0.0-0.2) 11/19/17 05:03 Absolute Neuts (auto) 3.03 10^3/uL (1.70-6.50) 11/19/17 05:03 Absolute Lymphs (auto) 1.22 10^3/uL (1.00-3.00) 11/19/17 05:03 Absolute Monos (auto) 0.43 10^3/uL (0.30-0.80) 11/19/17 05:03 Absolute Eos (auto) 0.07 10^3/uL (0.03-0.40) 11/19/17 05:03 Absolute Basos (auto) 0.04 10^3/uL (0.02-0.10) 11/19/17 05:03 Absolute Nucleated RBC 0.00 10^3/uL (0-0.01) 11/19/17 05:03 Immature Gran % 0.2 % (0.0-1.1) 11/19/17 05:03 Immature Gran # 0.01 10^3/uL (0.00-0.10) 11/19/17 05:03 Sodium 139 mEq/L (135-145) 11/19/17 05:03 Potassium 3.6 mEq/L (3.3-5.0) 11/19/17 05:03 Chloride 108 mEq/L (97-110) 11/19/17 05:03 Carbon Dioxide 24 mEq/l (22-31) 11/19/17 05:03 Anion Gap 7 mEq/L (8-16) L 11/19/17 05:03 BUN 14 mg/dL (7-23) 11/19/17 05:03 Creatinine 0.8 mg/dL (0.7-1.3) 11/19/17 05:03 Estimated GFR > 60 11/19/17 05:03 Glucose 104 mg/dL (70-100) H 11/19/17 05:03 Calcium 9.7 mg/dL (8.5-10.4) 11/19/17 05:03 Visualized and Interpreted imaging results: Yes Interpretation: The patient had bilateral ultrasound and pelvic CT performed that were negative for evidence of pseudoaneurysm or AV fistula EKG Interpretation: Positive for: normal sinsus rhythm Telemetry: Normal sinus rhythm A/P Assessment: Peter had a heart catheterization performed 10/03/17. He has since had ongoing right groin pain that has worsened over the past 24 hours. On examination, the patient has normal dorsalis pedis pulses and normal posterior tibialis pulses bilaterally. There is a 6mm area of the right inguinal region that is tender to palpation. There is no bruit. There is a Subsequently noted is that the patient has bony-fasciculations bilaterally. He has lost 30 pounds since last fall and continues to have intermittent chest pain in addition to his ongoing right groin pain. I recommend a true vascular study to rule out pseudoaneurysm vs AV fistula. I would like to repeat his abd/pelvic CTA with bilateral lower extremity runoff. He also needs imaging of his chest, abdomen and pelvis. I want a neurology consultation and have contacted Dr. Garcia who will see the patient. I am concerned about the bilateral myofasciculation, which is a heretofore unrecognized issue and not related to the heart cath as the patient has noticed those before the heart cath was performed. Plan: We will plan on repeating his CTA abdomen/pelvis with bilateral lower extremity run off to rule out pseudoaneurysm or AV fistula. I will review the results of these images with Dr. Villa Younger to look for vascular issues. In addition, I would like the patient to have a neurology consultation given his bilateral bony-fasciculations, recent 30 pound weight loss, severe back pain, and fatigue. We will continue telemetry monitoring for now.
[2017-11-19] MEDS ORDERED: DIAZEPAM 5 MG TAB PO PRN (13:32)
--- NOTE | 2017-11-19 14:08 | HOSPPROG ---
Hospitalist Progress Note Assessment/Plan: 57 yo M w recent cardiac cath, groin pain, muscle fasciculations muscle fasciculations: possible statin toxicity CK pending seen by neurology groin sx: previous imaging w hematoma repeat imaging ordered R leg neurovascularly intact weight loss: i believe this is due do food avoidance and alcohol cessation as opposed to underlying inflammatory/neurologic/malignant process chest/abdomen pelvis ordered cad: statin on hold aspirin dispo: admitted as obs suspect will be here overnight given breadth of studies ordered Subjective: case discussed w dr vargas, patient at bedside. long h/o various vague complaints, including concern for 'chemical sensitvity'. muscle fasciculations appear to correspond to initiation of statin therapy Objective: Vital Signs Temp Pulse Resp BP Pulse Ox 36.5 C 90 14 127/77 H 94 11/19/17 11:22 11/19/17 11:22 11/19/17 11:22 11/19/17 11:22 11/19/17 11:22 11/18/17 11/19/17 11/20/17 05:59 05:59 05:59 Intake Total 1020 Balance 1020 - Physical Exam Constitutional: no apparent distress Eyes: PERRL, anicteric sclera Ears, Nose, Mouth, Throat: moist mucous membranes, hearing normal Cardiovascular: regular rate and rhythym, no murmur, rub, or gallop, other ( groin w small hematoma, tender, no cellulitis) Respiratory: no respiratory distress, no rales or rhonchi Gastrointestinal: normoactive bowel sounds, soft, non-tender abdomen Genitourinary: No kwan in urethra Skin: warm, normal color Musculoskeletal: full muscle strength Neurologic: AAOx3, sensation intact bilaterally Psychiatric: interacting appropriately ICD10 Worksheet Patient Problems: Problems Problem Status Onset Groin pain Acute Chest pain Acute Groin hematoma Acute
[2017-11-19 14:13] LABS: CREATINE KINASE 31 IU/L (0-224)
[2017-11-19] MEDS: HYDROCODONE/APAP 5/325 TAB PO PRN ×2 (15:08→21:27)
--- NOTE | 2017-11-19 15:15 | GCON ---
[ rep ] CONSULTATION NEUROLOGIC CONSULTATION. REFERRING PHYSICIAN: Omar Medellin MD History is obtained from the patient as well as review of the medical records. The patient came to [facility] Emergency Department yesterday with a history of prominently increasing pain in the right inguinal region and toward his groin. He says that cardiac catheterization occurred about 3 weeks ago and he developed an acute hematoma a day or so after that, and it was associated with localized pain. Sinc e that time, he has been relatively inactive. He had a 40% coronary blockage, but did not have stent ing performed. He was placed on statin therapy and says that for about 2 weeks he felt really terrib le and stopped the statin about 10 days ago and started to have improvement in some of his symptoms. Specifically, he said his muscles felt a lot of pain. He was feeling generally weak throughout his body. He has a 20 year history of low back pain. He has had some chiropractic evaluations in the [facility] for that, but nothing recently. He does not describe loss of sensation. Pain remains over the ri ght inguinal region but not toward the genitalia. It is the medial thigh where he might feel the denice n or numb sensation, but that is fluctuating and generally moving in the right direction. Workup dur ing this hospitalization has not shown any new accumulation of hematoma, but rather just some small r esidual changes. He was evaluated and noted to have twitches in his muscles, which he says he has ne vikash had prior to the catheterization. This has been in the lower extremities bilaterally. No change in bowel or bladder function otherwise, but he said he initially noticed some dark color of his urin e after he was put on the statin. PAST MEDICAL HISTORY: The patient's additional past medical history, besides chronic low back pain h as been some chest pain as well as just generally feeling poorly with low energy. He has had a nasal polyp removed in the past. There is a family history of hypertension. SOCIAL HISTORY: Former smoker. No reported current alcohol use or drug use. He is . REVIEW OF SYSTEMS: Unremarkable except for that noted above. CURRENT MEDICATIONS: Tylenol as needed, Valium as needed, gabapentin 300 mg 3 times a day as needed, Jackson as needed, ondansetron as needed. ALLERGIES: He has an allergy to aspirin, so he is not on antiplatelet therapies. PHYSICAL EXAM: VITAL SIGNS: The blood pressure is 122/77, pulse of 90, respirations 14, temperature 36.5. GENERAL: He is well developed in no acute distress. GROIN: Specifically examining the groin site, there is a very small residual area of bruising where he had his groin stick and that area is p articularly tender to any pressure, so I did not push on it. He does not have superficial pain to to uch at the skin. I do not see any evidence of infection or masses. When he tries to raise the leg, he has some increasing pain in that region, so strength testing is a little bit limited. NEURO: He i s alert, attentive, clear, fluent speech. No obvious cognitive impairment. Motor exam in the upper extremities reveals normal muscle bulk and tone, 5/5 strength. I do not see any abnormal movements. In the lower extremities there is a little bit of atrophy in the right thigh more than the left. Th ere are bilateral rather diffuse fasciculations in both lower extremities, particularly proximally. Reflexes are 3+ and symmetric with no Babinski sign. Sensation is preserved for temperature and ligh t touch, although there might be a slight decreased cool sensation in the feet relative to the proxim al. His CK level was checked and is normal at 31. Other laboratory studies show unremarkable electrolyte s and CBC. His ultrasound performed shows a remnant hematoma versus scarring in the site of his prio r puncture in the groin, but nothing else more specific identified. IMPRESSION: The patient is experiencing some symptoms that have a correlation to starting statin the rapy that are characterized by muscle pain and now some fasciculations in the lower extremities. I d o not think this has anything to do with his cardiac catheterization. Certainly, the pain in that ar ea is related, but that would not cause bilateral fasciculations in the lower extremities, and the ba ck pain probably has been present for 20 years. If it is in fact statin toxicity, there is not evide nce of rhabdomyolysis with a normal CK. He did describe some dark-colored urine, which could have re presented myoglobinuria and may have resolved after he stopped the statin. He certainly feels better off the drug. Likewise, if it is statin toxicity, then I would expect all this to gradually resolve . The probability of primary motor neuron disease or lumbar radiculopathy or differential considerat ions, but less likely, based on this overall presentation. He has not generally been feeling well an d that is harder to ascertain a cause for. I told the patient that if this does not resolve over the next few weeks, then I would certainly want to see him as an outpatient and consider neurodiagnostic studies such as nerve conduction studies and EMG to better characterize this. He understands that a nd was given my contact information. From a neurologic standpoint, he can be discharged once he feel s safe and comfortable enough to go. I will continue to monitor his progress as an outpatient as jovi colin and see him tomorrow if he remains in the hospital. Total unit time of 70 minutes. /[id number]/MODL
[2017-11-19] MEDS ORDERED: IOPAMIDOL (ISOVUE 370) 100 ML BTL IV ONE (16:14)
--- NOTE | 2017-11-20 09:02 | NEUROPROG ---
Assessment: total unit time 25 minutes. Fasciculations and mild weakness in legs with possible statin toxicity. He seems to be getting a bit better or at least stable , although the vomiting this morning is a bit of a set back. Alternatively, there could be some peripheral neuropathy, but I will be happy to follow him further as an outpatient. Subjective: Pt is nauseated and vomiting this am. He feels legs are probably a little better. Still some twitches. Back and groin pain were stable until vomiting this am. Objective: Vital Signs Temp Pulse Resp BP Pulse Ox 36.9 C 97 12 111/74 95 11/20/17 07:22 11/20/17 07:22 11/20/17 07:22 11/20/17 07:22 11/20/17 07:22 11/19/17 11/20/17 11/21/17 05:59 05:59 05:59 Intake Total 1520 Balance 1520 Still some fasciculations in the lower extremities. No change in strength. Normal CK Allergies/Adverse Reactions: aspirin Allergy (Verified 10/03/17 08:51) Swelling/neck,face,throat
--- NOTE | 2017-11-20 09:35 | HOSPPROG ---
Hospitalist Progress Note Assessment/Plan: #Persistent groin pain: not to be expected after cath -discussed with Dr. Medellin; CT abd/pelvis and runoff unrevealing. Had extensive conversation with he and and explained we may not find anatomical reason for pain and if that is case, then need to focus on pain control and PT to get back to daily activities -Possible complex regional pain syndrome? Wouldn't be common from cath. Does have some edema in groin, trophic skin changes in foot. Describes neuropathic component. Start with Gabapentin tonight, titrate up to TID. PT #Leg fasciculations: possibly due to statins, though unusual. Dr. Garcia evaluated and will cont FU outpatient. Hold statin #Vomiting: this morning. Suspect from contrast. Tolerating fluids now without issue #Pulmonary nodule: repeat CT scan in 12 months #Weight loss: CT chest and abdomen with no masses, normal TSH Time spent on visit: 85 min bedside with patient/ explaining imaging, tx plan and d/w radiology and Dr. Medellin Subjective: vomiting this morning. Objective: Vital Signs Temp Pulse Resp BP Pulse Ox 36.9 C 97 12 111/74 95 11/20/17 07:22 11/20/17 07:22 11/20/17 07:22 11/20/17 07:22 11/20/17 07:22 11/19/17 11/20/17 11/21/17 05:59 05:59 05:59 Intake Total 1520 Balance 1520 - Time Spent With Patient Time Spent with Patient: greater than 35 minutes Time Spent with Patient: Greater than 35 minutes spent on this patients care, greater than 50% of time spent counseling, educating, and coordinating care regarding the above mentioned plan. - Physical Exam Constitutional: no apparent distress Eyes: PERRL Ears, Nose, Mouth, Throat: moist mucous membranes, hearing normal Cardiovascular: regular rate and rhythym, no murmur, rub, or gallop Respiratory: no respiratory distress Gastrointestinal: normoactive bowel sounds Genitourinary: no bladder fullness Skin: warm Musculoskeletal: other (right groin with healing bruise.Significant pain with min touch. Palpable femoral, dorsalis pulse) Neurologic: AAOx3, CN II-XII Intact Psychiatric: anxious ICD10 Worksheet Patient Problems: Problems Problem Status Onset Back pain Acute Fasciculations of muscle Acute Groin pain Acute Chest pain Acute Groin hematoma Acute
--- NOTE | 2017-11-20 15:05 | ASMTCMCOM ---
CM Note CM Note Notes: Chart reviewed. Discussed in rounds. Patient had cath in September and has c/o groin pain since that time. Neurology consultation done. Needs unclear at this time. CM to follow. Plan TBD. Date Signed: 11/20/2017 03:05 PM Electronically Signed By:Kay Irizarry RN
[2017-11-20] MEDS ORDERED: NS 1,000 ML IV SCH (15:30)
[2017-11-20] MEDS ORDERED: IOPAMIDOL (ISOVUE 370) 100 ML BTL IV ONE (15:51)
--- NOTE | 2017-11-20 18:03 | PDCARPN ---
Cardiology Progress Note Chief Complaint: Right groin pain Assessment/Plan: Assessment: I reviewed the patient's CTA abd/pelvis with bilateral lower extremity run off. The imaging is unremarkable for vascular compromise. At this time we do not have a reason for the patient's severe groin pain or the redness on the dorsum of his root with occurs with standing after periods of greater than 15 minutes. I have recommended the patient increase his activity level as tolerated to improve muscle and vascular strength. As for his bilateral lower extremity fasciculations, I think that statin toxicity is unlikely the cause of that as it would be an unusual side-effect. I am concerned that the fasciculation could be a sign of more serious neuromuscular disorder/disease that is heretofore unrecognized. Dr. Garcia consulted on the patient in the hospital. He certainly would have a better understanding of that problem and its appropriate evaluation. The patient will follow up with Dr. Garcia as an outpatient. I have instructed the patient to remain off the statin medication at this time. If he begins to feel better in a few weeks then I think we can discuss starting him on Rosuvastatin 5mg every other day at some point with careful follow up of a measured CPK, lipids and liver enzymes. Plan: We will plan on starting the patient on Gabapentin in hopes of improving his pain. The patient is clear from a cardiac standpoint and will likely be discharged home in the next 24 hours. 11/20/17 17:57 11/20/17 18:14 Subjective: The patient is resting comfortably in bed. His is at the bedside. He has many questions, which have now been answered. Reviewed/Discussed With: family, hospitalist, multidisciplinary team Time Spent with Patient: greater than 35 minutes Time Spent with Patient: Greater than 35 minutes spent on this patients care, greater than 50% of time spent counseling, educating, and coordinating care regarding the above mentioned plan. Objective: Vital Signs (8 Hrs) Temp Pulse Resp BP Pulse Ox 11/20/17 15:45 37.3 C 94 14 100/67 94 11/20/17 11:54 37.2 C 91 17 107/75 94 Intake/Output (24 Hrs) 11/19/17 11/20/17 11/21/17 05:59 05:59 05:59 Intake Total 1520 450 Balance 1520 450 Intake: Oral (ml) 500 450 IV Infused (ml) 1020 Other: Weight 77.111 kg Intake Quantity Yes Sufficient Number of Voids Toilet 1 Result Diagrams: 11/19/17 05:03 11/20/17 15:45 Telemetry: Normal sinus rhythm - Physical Exam Constitutional: WDWN, healthy appearing Eyes: PERRL, EOMI Ears, Nose, Mouth, Throat: moist mucous membranes Cardiovascular: regular rate and rhythm Peripheral Pulses: 2+: dorsalis-pedis (R), dorsalis-pedis (L) Respiratory: clear to auscultate bilat, no crackles, no wheezes Gastrointestinal: normoactive bowel sounds Skin: no rashes, no abrasions Musculoskeletal: other (Right groin tenderness with minimal palpation, slight bruising of the right groin region, no signs of infection) Neurologic: AAOx3 Psychiatric: cooperative - . Pending Discharge Within 24 Hours: Yes ICD10 Worksheet Patient Problems: Problems Problem Status Onset Back pain Acute Fasciculations of muscle Acute Groin pain Acute Chest pain Acute Groin hematoma Acute
[2017-11-20] MEDS ORDERED: GABAPENTIN 300 MG CAP PO SCH (21:00)
--- NOTE | 2017-11-21 08:07 | NEUROPROG ---
Assessment: total unit time 25 minutes. Fasciculations and mild weakness in legs with possible statin toxicity. He seems to be getting a bit better or at least stable , although the vomiting this morning is a bit of a set back. Alternatively, there could be some peripheral neuropathy, but I will be happy to follow him further as an outpatient. 11/21/17: 25 minute unit time reviewing plan for management and certainty of diagnosis. in room and answered questions. Follow up as outpatient. Subjective: Pt feels a little better Objective: Vital Signs Temp Pulse Resp BP Pulse Ox 36.9 C 80 12 106/76 91 L 11/21/17 08:00 11/21/17 08:00 11/21/17 08:00 11/21/17 08:00 11/21/17 08:00 Laboratory Results 11/20/17 15:45 11/20/17 11/21/17 11/22/17 05:59 05:59 05:59 Intake Total 1520 1700 Balance 1520 1700 Allergies/Adverse Reactions: aspirin Allergy (Verified 10/03/17 08:51) Swelling/neck,face,throat
--- NOTE | 2017-11-21 10:02 | PDMN ---
Medical Necessity Medical necessity: ongoing groin pain unclear etiology, S/P cath muscle fasciculations, poss statin toxicity, pt with N/V this am, further monitoring needed > 2 MN, status changed 11/20/17 @ 1941
[2017-11-21 12:39] VITALS: BP 114/78
--- NOTE | 2017-11-21 13:37 | ASMTDCNOTE ---
Case Management Discharge Discharge Order Complete? Answers: Yes Patient to Obtain Answers: Independently Medications Transportation Arranged Answers: Family/Friends EMTALA Complete Answers: No Case Management Transport Answers: No Form Complete Faxed Final Orders Answers: No Agency/Facility Transfer Answers: No Report Printed & Faxed to Receiving Agency Family Notified Answers: No Discharge Comments Notes: Pts case discussed in tx rounds. Pt is being discharged today. PT has cleared pt to d/c home with outpatient therapy. No other needs identified at this time. CM available for changes. Plan: Independent Date Signed: 11/21/2017 01:36 PM Electronically Signed By:IBRAHIMA Banks
--- NOTE | 2017-11-21 13:38 | ASMTLACE ---
LACE Length of stay for Answers: 2 days current admission Acuity / Level of Answers: Yes Care: Did the patient have an inpatient admission? Comorbidities - select Answers: Coronary Artery Disease all that apply Other Notes: HTN, heart cath 10/03 # of Emergency department Answers: 3-4 visits in the last 6 months Score: 11 Date Signed: 11/21/2017 01:37 PM Electronically Signed By:IBRAHIMA Banks
--- NOTE | 2017-11-21 18:19 | PDDCSUM ---
Discharge Summary Discharge Summary: 57 yo M with hx nonocclusive CAD 40% stenosis LAD, chronic back pain and recent cardiac cath with persistent right groin pain and occasional numbness/tingling. Noted to have fasciculations to lower extremity. Evaluated by both cardiology and Neurology. Etiology unclear. Possible statin. Had CTA with run off which was non revealing. See below. Now improving. Neurontin started and being increased upon discharge to TID. He will f/u with both cards and neuro for further eval. symptoms are improving upon discharge. DDX: #Persistent groin pain: not to be expected after cath -Possible complex regional pain syndrome? -Titrate Gabapentin #Leg fasciculations: possibly due to statins, though unusual. Dr. Garica evaluated and will cont FU outpatient. Hold statin #Vomiting: resolved #Pulmonary nodule: repeat CT scan in 12 months #Weight loss: CT chest and abdomen with no masses, normal TSH exam: NAD AAOX3 RRR CTAB S/NT/ND MEDS: SEE MED REC TOTAL TIME SPENT ON D/C IS 35 MINS
== END 2017-11-21 15:17 | disposition home or self-care (01) ==
LOC: F2W 08:41 → INTOOBSV 11-20 19:41 → OBSVTOIN 11-20 19:41
PROVIDERS: ADMIT Family Medicine; ATTEND Family Medicine
DX: G89.18 Other acute postprocedural pain (principal); R10.31 Right lower quadrant pain; R25.3 Fasciculation; T46.6X5A Adverse effect of antihyperlipidemic and antiarteriosclerotic drugs, initial encounter; M54.5 Low back pain; I25.10 Atherosclerotic heart disease of native coronary artery without angina pectoris
CPT/HCPCS: 96374; 97161-GP; G0378; J1170; J2405; Q9967

== ENCOUNTER → 2018-01-21 | Outpatient (CLI) | payer OTHER | LOC: FIMAGING 14:24 | PROVIDERS: ATTEND Internal Medicine | DX: M25.551 Pain in right hip (principal) ==

== ENCOUNTER → 2018-04-25 | Outpatient (CLI) | payer MEDICAID ==
[~2018-04-25] MED LIST: GADOBUTROL 10 ML VIAL IVP ONE
== END ==
LOC: FIMAGING 09:48
PROVIDERS: ATTEND Psychiatry & Neurology Neurology
DX: M51.36 Other intervertebral disc degeneration, lumbar region (principal); M47.816 Spondylosis without myelopathy or radiculopathy, lumbar region; N40.0 Benign prostatic hyperplasia without lower urinary tract symptoms
CPT/HCPCS: A9585

== ENCOUNTER → 2018-04-30 | Outpatient (CLI) | payer MEDICAID | LOC: FIMAGING 09:47 | DX: R10.31 Right lower quadrant pain (principal) | CPT/HCPCS: 78315; A9503 ==